=== PATIENT | male | born 1950 | race Caucasian/White ===

== ENCOUNTER → 2017-12-22 09:03 | Outpatient (CLI) | payer BC, SELFPAY ==
[2017-12-22 11:00] LABS: ALB/GLOB Ratio 1.1 RATIO (0.9-2.4); AST(SGOT) 23 U/L (15-37); Alanine Aminotransfer ALT/SGPT 32 U/L (16-61); Alkaline Phosphatase 95 U/L (45-117); Anion Gap 10 (5-15); BUN 22 mg/dL (7-18); BUN/Creat Ratio 21.6 RATIO (10-20); Chloride 104 mmol/L (98-107); Cholesterol 171 mg/dL (200); Creatinine, Serum 1.02 mg/dL (0.70-1.30); EST Glomerular Filtration Rate 77 mL/min (>60); Est Glom Filt Rate - Afr Amer 94 mL/min (>60); Globulin 3.7 g/dL (2.2-4.2); Glucose 95 mg/dL (74-106); High Density Lipoprotein 46 mg/dL; PSA,Total- Diagnostic 4.79 ng/mL (0.0-4.0); Potassium 3.3 mmol/L (3.5-5.1); Protein, Total 7.7 g/dL (6.4-8.2); Sodium Level 141 mmol/L (136-145); Triglycerides 145 mg/dL; Very Low Density Lipoprotein 29 mg/dL (5-40)
== END ==
PROVIDERS: Family Provider Family Medicine; PCP Family Medicine; Visit Provider Family Medicine
DX: I10 Essential (primary) hypertension (principal); R97.20 Elevated prostate specific antigen [PSA]
CPT/HCPCS: 36415; 80053; 80061; 84153

== ENCOUNTER → 2018-05-17 12:51 | Outpatient (CLI) | payer BC, SELFPAY ==
--- NOTE | 2018-05-17 12:55 | RAD_ITS ---
STUDY: X-RAY - LEFT KNEE REASON FOR EXAM: Male, 68 years old. Pain. Follow-up after surgery TECHNIQUE: 4 view(s) of the knee. COMPARISON: November 16, 2017 FINDINGS: Again noted is left knee replacement. No evidence of hardware failure or loosening. No acute fracture or dislocation. Small amount of joint effusion. RAD/Knee 4 or More Views IMPRESSION: Knee replacement without hardware failure or loosening. Small joint effusion Electronically Signed: Noman Jasmine DO at 13:34 EDT Tel , Service support ,
== END ==
PROVIDERS: Family Provider Family Medicine; PCP Family Medicine; Visit Provider Orthopaedic Surgery
DX: M17.12 Unilateral primary osteoarthritis, left knee (principal)
CPT/HCPCS: 73564

== ENCOUNTER → 2018-07-14 13:57 | Outpatient (CLI) | payer BC, SELFPAY ==
[2018-07-14 15:27] LABS: Anion Gap 7 (5-15); BUN 17 mg/dL (7-18); BUN/Creat Ratio 14.9 RATIO (10-20); Calcium,Total 9.3 mg/dL (8.5-10.1); Chloride 105 mmol/L (98-107); Creatinine, Serum 1.14 mg/dL (0.70-1.30); EST Glomerular Filtration Rate 68 mL/min (>60); Est Glom Filt Rate - Afr Amer 82 mL/min (>60); Glucose 109 mg/dL (74-106); PSA,Total- Diagnostic 4.26 ng/mL (0.0-4.0); Potassium 3.7 mmol/L (3.5-5.1); Sodium Level 140 mmol/L (136-145)
== END ==
PROVIDERS: Family Provider Family Medicine; PCP Family Medicine; Visit Provider Family Medicine
DX: I10 Essential (primary) hypertension (principal); E87.6 Hypokalemia; R97.20 Elevated prostate specific antigen [PSA]
CPT/HCPCS: 36415; 80048; 84153

== ENCOUNTER → 2019-01-08 12:58 | Outpatient (CLI) | payer BC, SELFPAY ==
[2019-01-08 13:42] LABS: Absolute Lymphocyte Count 2.34 X10^3/ul (0.83-4.51); Absolute Neutrophil Count 2.8 X10^3/uL (2.0-7.7); Basophil# 0.05 X10^3/uL; Basophil% 0.8 % (0-1); Eosinophil# 0.19 X10^3/uL; Eosinophils% 3.2 % (0-5); Hematocrit 44.9 % (40-54); Lymphocyte # 2.34 X10^3/ul (4.0); Lymphocyte % 39.4 % (19-41); Mean Corp Hgb Conc 33.4 g/gl (32-36); Mean Corpuscular Hgb 30.7 pg (27.0-32.0); Mean Corpuscular Volume 91.8 fL (80-94); Mean Platelet Vol. 9.5 fl (6.2-12.0); Monocyte# 0.59 X10^3/uL; Monocyte% 9.9 % (0-10); Neutrophil # 2.76 X10^3/uL (2.7-7.7); Neutrophil % 46.5 % (47-70); Platelet Count 255 K/mm3 (150-450); RBC Distribution Width CV 13.8 % (11.6-14.6); RBC Distribution Width SD 45.5 fl (35.1-43.9); Red Blood Count 4.89 M/mm3 (4.6-6.2); White Blood Count 5.9 K/mm3 (4.4-11.0)
[2019-01-08 13:43] LABS: POSITIVE COUNT NO; POSITIVE DIFFERENTIAL NO; POSITIVE MORPHOLOGY NO
[2019-01-08 14:14] LABS: ALB/GLOB Ratio 1.1 RATIO (0.9-2.4); AST(SGOT) 37 U/L (15-37); Alanine Aminotransfer ALT/SGPT 63 U/L (16-61); Alkaline Phosphatase 94 U/L (45-117); Anion Gap 7 (5-15); BUN 20 mg/dL (7-18); BUN/Creat Ratio 18.3 RATIO (10-20); Chloride 106 mmol/L (98-107); Cholesterol 173 mg/dL (200); Creatinine, Serum 1.09 mg/dL (0.70-1.30); EST Glomerular Filtration Rate 72 mL/min (>60); Est Glom Filt Rate - Afr Amer 87 mL/min (>60); Globulin 3.7 g/dL (2.2-4.2); Glucose 94 mg/dL (74-106); High Density Lipoprotein 38 mg/dL; PSA,Total- Diagnostic 4.26 ng/mL (0.0-4.0); Potassium 3.5 mmol/L (3.5-5.1); Protein, Total 7.7 g/dL (6.4-8.2); Sodium Level 141 mmol/L (136-145); Triglycerides 275 mg/dL; Very Low Density Lipoprotein 55 mg/dL (5-40)
== END ==
PROVIDERS: Family Provider Family Medicine; PCP Family Medicine; Referring Provider Family Medicine; Visit Provider Family Medicine
DX: I10 Essential (primary) hypertension (principal); R97.20 Elevated prostate specific antigen [PSA]; R73.01 Impaired fasting glucose; E87.6 Hypokalemia; N40.0 Benign prostatic hyperplasia without lower urinary tract symptoms
CPT/HCPCS: 36415; 80053; 80061; 84153; 85025

== ENCOUNTER → 2019-03-19 13:00 | Outpatient (CLI) | payer BC, SELFPAY ==
[2019-03-19 12:52] VITALS: BMI 30.5
--- NOTE | 2019-03-19 13:02 | RAD_ITS ---
STUDY: X-RAY - RIGHT KNEE REASON FOR EXAM: Male, 69 years old. Worsening pain TECHNIQUE: 4 view(s) of the knee. COMPARISON: None. FINDINGS: Normal visualized distal femur. Normal visualized proximal tibia and fibula. Normal proximal tibiofibular articulation. There is severe degenerative arthrosis of the medial femorotibial compartment with severe joint space narrowing. There is moderate degenerative arthrosis of the lateral femorotibial compartment with moderate joint space narrowing. There is moderate degenerative arthrosis of the patellofemoral articulation. The soft tissue structures are unremarkable. RAD/Knee 4 or More Views IMPRESSION: Degenerative arthrosis. Electronically Signed: Brock Farnsworth MD at 15:12 EDT , Service support ,
== END ==
PROVIDERS: Family Provider Family Medicine; PCP Family Medicine; Referring Provider Orthopaedic Surgery; Visit Provider Orthopaedic Surgery
DX: R52 Pain, unspecified (principal)
CPT/HCPCS: 73564

== ENCOUNTER 2019-06-26 09:29 | Observation (INO) | payer BC, SELFPAY ==
--- NOTE | 2019-05-28 02:35 | HP_ITS ---
Intake Vital Signs 05/28/19 Body Mass Index (BMI) 30.5 05/09/19 Body Mass Index (BMI) 30.5 Intake Visit Reasons: Right Knee Allergies ciprofloxacin Allergy (Verified 05/31/17 11:12) Vomiting Medications Multivitamins,Therapeutic [Multivitamin] 1 tab PO DAILY 10/18/14 [History Confirmed 05/28/19] Simvastatin [Zocor] 20 mg PO QHS 10/18/14 [History Confirmed 05/28/19] Triamterene 37.5MG/Hctz 25MG [Maxzide 37.5 mg-25 mg Tablet] 1 tab PO DAILY 10/18/14 [History Confirmed 05/28/19] Glucosam/Manoj-Msm1/C/Sundar/Bosw [Glucosamine-Chondroitin Caplet] 1 ea PO DAILY 12/08/15 [History Confirmed 05/28/19] Ubidecarenone/Vit E Acet [Co Q-10 100 mg Softgel] 1 ea PO DAILY 12/08/15 [History Confirmed 05/28/19] Dutasteride [Avodart] 0.5 mg PO DAILY 05/31/17 [History Confirmed 05/28/19] Docusate Sodium [Colace] 100 mg PO BID PRN PRN #10 cap 06/08/17 [Rx Confirmed 05/28/19] PFSH Surgical History (Updated 11/16/17 @ 09:06 by Pauly Serrato) Status post total left knee replacement (Acute) Social History (Updated 05/28/19 @ 14:35 by Micky Lomeli DO) Smoking Status: Never smoker HPI Right Knee: Chief Complaint: Right knee Surgical H&P: Yes Details: Parts of this documentation were recorded by a scribe, this documentation accurately reflects the service provided and the decisions made by , Micky Lomeli DO 05/28/19 0754. MULUGETA ECHAVARRIA is a 69 year old M here today to sign concent for right total knee. Patient denies any changes since last visit to the office. Patient has decided to also try the IOVERA. ROS Const Reports system reviewed and no additional complaints, except as docu Eyes Reports system reviewed and no additional complaints, except as docu ENT Reports system reviewed and no additional complaints, except as docu Card Reports system reviewed and no additional complaints, except as docu Resp Reports system reviewed and no additional complaints, except as docu GI Reports system reviewed and no additional complaints, except as docu Reports system reviewed and no additional complaints, except as docu Musc Reports system reviewed and no additional complaints, except as docu, Reports as per HPI Skin/Breast Reports system reviewed and no additional complaints, except as docu Neuro Yes system reviewed and no additional complaints, except as docu Psych Reports system reviewed and no additional complaints, except as docu Endo Reports system reviewed and no additional complaints, except as docu Damion/Lymph Reports system reviewed and no additional complaints, except as docu Aller/Immun Reports system reviewed and no additional complaints, except as docu Ortho Exam Right Knee Skin/Wound: No erythema, No ecchymosis, No swelling Homans Sign: No 1+: Effusion Knee ROM: Yes ROM-Extension -20 to 0 (full), Yes ROM-Flexion 0-140 (118) Examination: No Med jt line tenderness, No Lat jt line tenderness Stability: NML: Anterior Drawer, NML: Posterior Drawer, NML: Varus 30, 1+: Valgus 30 Apprehension with Lateral Translation: No Patella Grind: Yes KNEE: Has varus deformity. Assessment & Plan Problems 1. Primary osteoarthritis of right knee M17.11 Plan Patient aware that he has severe OA of the right knee. Reviewed risk benefits and alternatives of surgical versus nonsurgical intervention. Reviewed the pre- operative plans with the patient. Risks and benefits of the procedure were fully explained, including but not limited to infection, neurovascular injury, continued pain, arthritis, stiffness, need for further surgery, re-injury, DVT, PE, general risks of anesthesia, and loss of limb or life. The patient understands all the risks and does wish to proceed with written consent. He did have a history of requiring a Dynasplint on his left total knee arthroplasty. We did discuss Iovera risk benefits and patient wishes to proceed with Iovera tx which we will need to get pre-cert for this tx. Patient signs consent for surgery and Iovera tx for right knee this day. Patient placed on surgery schedule for 06/26/19. Follow up 06/11/19 for Iovera tx or sooner if pain, swelling, numbness or associated symptoms, or concerns develop. All questions answered. Patient in agreement of plan. Coding Level of Care Code Off vis,est,level 3 Diagnoses Primary osteoarthritis of right knee M17.11 05/28/19 1435 <Electronically signed by Micky lujan DO> Date _ Micky Lomeli DO
[2019-05-28 13:12] VITALS: BMI 30.5
[2019-06-21 13:34] LABS: Absolute Lymphocyte Count 2.99 X10^3/uL (0.83-4.51); Absolute Neutrophil Count 3.1 X10^3/uL (2.0-7.7); Basophil# 0.05 X10^3/uL; Basophil% 0.7 % (0-1); Eosinophil# 0.19 X10^3/uL; Eosinophils% 2.7 % (0-5); Hematocrit 42.1 % (40-54); Hemoglobin 14.5 g/dL (13.0-16.5); Lymphocyte # 2.99 X10^3/ul (4.0); Mean Corp Hgb Conc 34.4 g/dL (32-36); Mean Platelet Vol. 9.3 fl (6.2-12.0); Monocyte# 0.62 X10^3/uL; Monocyte% 8.9 % (0-10); NRBC Flagged by Analyzer 0 % (0-5); Neutrophil # 3.09 X10^3/uL (2.7-7.7); Neutrophil % 44.6 % (47-70); Platelet Count 227 K/mm3 (150-450); RBC Distribution Width CV 13.2 % (11.6-14.6); RBC Distribution Width SD 43.6 fl (35.1-43.9); Red Blood Count 4.68 M/mm3 (4.6-6.2)
[2019-06-21 14:03] LABS: ALB/GLOB Ratio 1.1 RATIO (0.9-2.4); AST(SGOT) 38 U/L (15-37); Alanine Aminotransfer ALT/SGPT 69 U/L (16-61); Albumin, Serum 3.9 g/dL (3.2-5.0); Alkaline Phosphatase 84 U/L (45-117); Anion Gap 6 (5-15); BUN 17 mg/dL (7-18); BUN/Creat Ratio 15.2 RATIO (10-20); Calcium,Total 8.9 mg/dL (8.5-10.1); Chloride 107 mmol/L (98-107); Cholesterol 162 mg/dL (200); Creatinine, Serum 1.12 mg/dL (0.70-1.30); EST Glomerular Filtration Rate 69 mL/min (>60); Est Glom Filt Rate - Afr Amer 84 mL/min (>60); Globulin 3.7 g/dL (2.2-4.2); Glucose 92 mg/dL (74-106); High Density Lipoprotein 37 mg/dL; PSA,Total- Diagnostic 3.15 ng/mL (0.0-4.0); Potassium 3.5 mmol/L (3.5-5.1); Protein, Total 7.6 g/dL (6.4-8.2); Sodium Level 141 mmol/L (136-145); Triglycerides 249 mg/dL; Very Low Density Lipoprotein 50 mg/dL (5-40)
[2019-06-26] VITALS (14 sets, daily range): BP systolic 99–127; BP diastolic 59–73; PULSE 66–80; RESP 14–18; TEMP 36.2–36.7; O2SAT 94–100; BMI 30.4
[2019-06-26] MEDS: Lactated Ringers 1,000 ML 100 ML IV (06:19)
[2019-06-26] MEDS: Magnesium Sulfate 4gm/100mL 4 GM/100 ML IV.SOLN. IV (06:19)
[2019-06-26] MEDS: Acetaminophen 500 MG Tablet 1000 MG PO ×3 (06:24→21:17)
[2019-06-26] MEDS: Celecoxib 200 MG Capsule 400 MG PO (06:24)
[2019-06-26] MEDS: Gabapentin 600 MG Tablet PO (06:24)
[2019-06-26] MEDS: Scopolamine 1mg/72hr Patch 1 PATCH TRANSDERM. (06:25)
[2019-06-26 06:26] LABS: Bedside Glucose 95 mg/dL (70-110)
[2019-06-26] MEDS: dexAMETHasone 10 MG/ML Vial IV (06:45)
[2019-06-26] MEDS: Cefazolin 2 GM in 0.9% Normal Saline 100 ML IV ×3 (07:15→22:29)
--- NOTE | 2019-06-26 07:15 | HP.PCM_ITS ---
History and Physical Date of Admission: 06/26/19 Intake Vital Signs 05/28/19 Body Mass Index (BMI) 30.5 05/09/19 Body Mass Index (BMI) 30.5 Intake Visit Reasons: Right Knee Allergies ciprofloxacin Allergy (Verified 05/31/17 11:12) Vomiting Medications Multivitamins,Therapeutic [Multivitamin] 1 tab PO DAILY 10/18/14 [History Confirmed 05/28/19] Simvastatin [Zocor] 20 mg PO QHS 10/18/14 [History Confirmed 05/28/19] Triamterene 37.5MG/Hctz 25MG [Maxzide 37.5 mg-25 mg Tablet] 1 tab PO DAILY 10/18/14 [History Confirmed 05/28/19] Glucosam/Manoj-Msm1/C/Sundar/Bosw [Glucosamine-Chondroitin Caplet] 1 ea PO DAILY 12/08/15 [History Confirmed 05/28/19] Ubidecarenone/Vit E Acet [Co Q-10 100 mg Softgel] 1 ea PO DAILY 12/08/15 [History Confirmed 05/28/19] Dutasteride [Avodart] 0.5 mg PO DAILY 05/31/17 [History Confirmed 05/28/19] Docusate Sodium [Colace] 100 mg PO BID PRN PRN #10 cap 06/08/17 [Rx Confirmed 05/28/19] PFSH Surgical History (Updated 11/16/17 @ 09:06 by Pauly Serrato) Status post total left knee replacement (Acute) Social History (Updated 05/28/19 @ 14:35 by Micky Lomeli DO) Smoking Status: Never smoker HPI Right Knee: Chief Complaint: Right knee Surgical H&P: Yes Details: Parts of this documentation were recorded by a scribe, this documentation accurately reflects the service provided and the decisions made by mo, Micky Lomeli DO 05/28/19 0754. MULUGETA ECHAVARRIA is a 69 year old M here today to sign concent for right total knee. Patient denies any changes since last visit to the office. Patient has decided to also try the IOVERA. ROS Const Reports system reviewed and no additional complaints, except as docu Eyes Reports system reviewed and no additional complaints, except as docu ENT Reports system reviewed and no additional complaints, except as docu Card Reports system reviewed and no additional complaints, except as docu Resp Reports system reviewed and no additional complaints, except as docu GI Reports system reviewed and no additional complaints, except as docu Reports system reviewed and no additional complaints, except as docu Musc Reports system reviewed and no additional complaints, except as docu, Reports as per HPI Skin/Breast Reports system reviewed and no additional complaints, except as docu Neuro Yes system reviewed and no additional complaints, except as docu Psych Reports system reviewed and no additional complaints, except as docu Endo Reports system reviewed and no additional complaints, except as docu Damion/Lymph Reports system reviewed and no additional complaints, except as docu Aller/Immun Reports system reviewed and no additional complaints, except as docu Ortho Exam Right Knee Skin/Wound: No erythema, No ecchymosis, No swelling Homans Sign: No 1+: Effusion Knee ROM: Yes ROM-Extension -20 to 0 (full), Yes ROM-Flexion 0-140 (118) Examination: No Med jt line tenderness, No Lat jt line tenderness Stability: NML: Anterior Drawer, NML: Posterior Drawer, NML: Varus 30, 1+: Valgus 30 Apprehension with Lateral Translation: No Patella Grind: Yes KNEE: Has varus deformity. Assessment & Plan Problems 1. Primary osteoarthritis of right knee M17.11 Plan Patient aware that he has severe OA of the right knee. Reviewed risk benefits and alternatives of surgical versus nonsurgical intervention. Reviewed the pre- operative plans with the patient. Risks and benefits of the procedure were fully explained, including but not limited to infection, neurovascular injury, continued pain, arthritis, stiffness, need for further surgery, re-injury, DVT, PE, general risks of anesthesia, and loss of limb or life. The patient understands all the risks and does wish to proceed with written consent. He did have a history of requiring a Dynasplint on his left total knee arthroplasty. We did discuss Iovera risk benefits and patient wishes to proceed with Iovera tx which we will need to get pre-cert for this tx. Patient signs consent for surgery and Iovera tx for right knee this day. Patient placed on surgery schedule for 06/26/19. Follow up 06/11/19 for Iovera tx or sooner if pain, swelling, numbness or associated symptoms, or concerns develop. All questions answered. Patient in agreement of plan. Coding Level of Care Code Off vis,est,level 3 Diagnoses Primary osteoarthritis of right knee M17.11 I have re-examined the patient. There are no clinical changes since date of exam
[2019-06-26] MEDS: Morphine 4 MG/ML Syringe (08:00)
[2019-06-26] MEDS: Bupivacaine 0.5% PF 10 ML VIAL (08:00)
[2019-06-26] MEDS: Epinephrine (1 mg/ml) 1 MG/ML VIAL (08:00)
[2019-06-26] MEDS: Lactated Ringers 1,000 ML 125 ML IV ×3 (09:01→22:32)
--- NOTE | 2019-06-26 09:27 | RAD_ITS ---
STUDY: X-RAY - RIGHT KNEE REASON FOR EXAM: Male, 69 years old. Postsurgical assessment TECHNIQUE: 2 view(s) of the knee. COMPARISON: None. FINDINGS: Patient with recent total knee joint replacement, with anatomical positioning of the knee prosthesis. Normal interface between the prosthesis and the underlying bone stock with no surgical complication observed. RAD/Knee 1 or 2 Views IMPRESSION: Unremarkable right knee replacement. No surgical complication observed. Electronically Signed: Dillon Gill MD at 13:08 EDT Tel [phone], Service support ,
--- NOTE | 2019-06-26 09:32 | PCM.OPRPT ---
Report of Operation Date of Procedure: 06/26/19 Description of Surgical Findings:: Preoperative diagnosis: Right knee DJD Postoperative diagnosis: [Same] Procedure: Right total knee arthroplasty Implant: Sade triathlon cemented right femoral component size 6, cemented tibial baseplate size 6, cemented [asymmetric] patella size 40, polyethylene X3 size [9] [CS] Anesthesia: Spinal with adductor canal block Tourniquet time: 88 minutes at 300 mmHg Complications: None Condition: Stable to PACU Estimated blood loss: [25] cc Indication for procedure: This is a 69-year-old male with long standing degenerative joint disease of the knee who has failed conservative treatment and wished to proceed with elective total knee arthroplasty. Risk benefits and alternatives were reviewed including; risk of bleeding, infection, nerve artery and tissue damage, continued pain, postoperative stiffness, venous thromboembolism, need for postoperative rehabilitation, mechanical feel to the knee, and expected postoperative course. Procedure: The patient was met in the preoperative holding area. The operative extremity was identified by both patient and physician and was marked. Patient was met by anesthesia. An adductor canal block was placed by anesthesia [postoperatively] the patient was brought back to the operating room on a wheeled cart and transferred to the operating table in the supine position. Anesthesia was started. A well-padded tourniquet was placed on the operative extremity. The patient was prepped and draped in the usual sterile fashion. A timeout was called to ensure the proper patient procedure and extremity were being contemplated. An Esmarch was used to exsanguinate the extremity. The tourniquet was inflated. A 10 blade scalpel was used to make a midline incision down through the skin and subcutaneous tissue. Skin retractors placed. Bovie was used to perform meticulous hemostasis. full-thickness flaps were elevated medial and lateral along the joint capsule. A deep blade scalpel was used to perform a medial parapatellar arthrotomy. The knee was brought to full extension. A Bovie was used to release the soft tissues off the most proximal aspect of the medial tibial plateau a three-quarter inch curved osteotome was also used for this process. The infrapatellar fat pad was excised. [The fat pad was excised partially anterior lateral portion the anterior medial was elevated from the femur]. the patella was everted. The knee was brought into flexion. An intramedullary drill was used followed by flexible intramedullary guide millie. The distal femoral cutting block was placed and set to remove 10 mm of bone and [5] degrees of valgus. The block was secured with pins and an oscillating saw was used to complete the distal femoral cut. During this, and all bony cuts retractors were used to protect the collateral ligaments. At this point a femoral sizer was used to measure the AP dimension of the femur. The sizer block was pinned parallel to the epicondylar axis for external rotation. The sizing block was removed and the appropriately sized 4-in-1 cutting block was placed over the previously made pinholes. It was checked with an marnie wing and the block was secured with pins. An oscillating saw was used to complete the anterior cut followed by the posterior cut followed by the posterior chamfer cut followed by the anterior chamfer cut. The block was removed as well as the fragments. A ronguer was used to remove excess osteophytes. The medial and lateral meniscus were excised as well as the ACL. At this point a PCL retractor was placed and an intramedullary drill was passed down the tibial canal followed by a solid intramedullary guide millie. The tibial cutting block was attached and set to remove 9 mm of bone from the high side. This was checked with an external alignment drop millie for slope and tilt. It was pinned into place. An oscillating saw was used to complete the tibial plateau cut and the block was removed. A large osteotome was used to elevate the fragment and a Marcelo and a Bovie were used to free the fragment from the surrounding soft tissue. A rongeur was once again used to remove osteophytes a lamina patriot missile air defense artillery was used to evaluate the posterior capsular structures. A three-quarter inch curved osteotome was used to remove posterior osteophytes. A spacer block was inserted in both extension and flexion to ensure adequate spacing. Trials were inserted full extension and flexion were achieved in varus and valgus stability throughout range of motion were seen, balancing techniques were performed. At this point the attention was turned towards the patella. A caliper was used to ensure sufficient bone stock to remove 10 mm of bone. A reamer was used to perform this task. Lug holes were made for the appropriate-sized patella. The patella trial was inserted and there was good patellar tracking with knee range of motion. The tibial baseplate was allowed to float into rotation and was marked on the tibial plateau with a Bovie. Lug holes were made in the femur and trials were removed. The tibial baseplate was then sized and its preparation was completed with a fin punch. The knee was thoroughly irrigated. A posterior capsular injection was performed [with our standard cocktail]. The knee was brought into flexion and irrigated again. The tibial baseplate was cemented. Excess cement was removed with curettes. The polyethylene component was inserted. The femoral component was cemented. The knee was brought into full extension and placed on a bump. The patellar component was cemented. At this point a Betadine rinse was placed and thoroughly irrigated after a few minutes. This was followed by an Iricept rinse which was allowed to sit for 1 minute and then thoroughly irrigated.At this point all gloves were changed. The knee was thoroughly irrigated the joint capsule was closed with [#1 Ethibond]. Tourniquet was let down followed by 0 Vicryl and 2-0 Vicryl in the subcutaneous tissues. followed by chino in the skin. Dressing was applied in the form of Xeroform 4 x 4 ABD web roll and an Vidal wrap from the foot to the groin. The patient tolerated the procedure well, all counts were correct patient was brought back to the PACU in stable condition.
--- NOTE | 2019-06-26 10:16 | SUR.PHASEI ---
BEGINNING TO HAVE GROSS MOTOR MOVEMENT OF LOWER EXTREMITIES TO COMMAND
[2019-06-26] MEDS: APIXABAN 2.5 MG TABLET PO ×2 (12:20→21:17)
[2019-06-26] MEDS: Senna/Docusate Sodium 1 Tablet 2 TABLET PO ×2 (12:20→21:16)
[2019-06-26] MEDS: Atorvastatin Calcium 10 MG Tablet PO (21:16)
[2019-06-27 03:00] VITALS: BP 116/65; PULSE 75; RESP 16; TEMP 36.6; O2SAT 100
[2019-06-27] MEDS: Acetaminophen 500 MG Tablet 1000 MG PO ×2 (05:17→14:32)
[2019-06-27 06:17] LABS: Hematocrit 35.4 % (40-54); Mean Corp Hgb Conc 33.9 g/dL (32-36); Mean Corpuscular Hgb 30.8 pg (27.0-32.0); Mean Platelet Vol. 9.8 fl (6.2-12.0); Platelet Count 198 K/mm3 (150-450); RBC Distribution Width CV 13.3 % (11.6-14.6); RBC Distribution Width SD 43.8 fl (35.1-43.9); Red Blood Count 3.89 M/mm3 (4.6-6.2); White Blood Count 17.2 K/mm3 (4.4-11.0)
[2019-06-27 06:42] LABS: Anion Gap 9 (5-15); BUN 17 mg/dL (7-18); BUN/Creat Ratio 15.6 RATIO (10-20); Calcium,Total 8.5 mg/dL (8.5-10.1); Chloride 107 mmol/L (98-107); Creatinine, Serum 1.09 mg/dL (0.70-1.30); EST Glomerular Filtration Rate 71 mL/min (>60); Est Glom Filt Rate - Afr Amer 86 mL/min (>60); Estimated Creatinine Clearance 66.97 ml/min; Glucose 123 mg/dL (74-106); Potassium 3.5 mmol/L (3.5-5.1); Sodium Level 141 mmol/L (136-145)
[2019-06-27 09:52] VITALS: BP 109/58; PULSE 62; RESP 18; TEMP 36.6; O2SAT 99
[2019-06-27] MEDS: Triamterene 37.5MG/Hctz 25MG Capsule 1 CAP PO (09:57)
[2019-06-27] MEDS: APIXABAN 2.5 MG TABLET PO (09:57)
[2019-06-27] MEDS: Senna/Docusate Sodium 1 Tablet 2 TABLET PO (09:57)
[2019-06-27] MEDS: Finasteride 5 MG Tablet PO (09:58)
--- NOTE | 2019-06-27 11:21 | CASEMGMT ---
RN CM Assessment Presentation: RTKR Intro role of CM and purpose of RN CM assessment to patient and his . Demographics, PCP and Pharmacy verified. Pt states he has been very independent @ home. Plans to return home and if therapy is needed outpt- prefers [facility]. PCP: Dr. David Hurley Specialists: Dr. Lomeli Preferred Pharmacy: [facility] Insurance: [employer] Prescription Benefit: yes LNOK: Verena Joel, Living Arrangements: Lives in one story home, 3 steps into home. Pt very independent prior to surgery. Transportation: Drives, can drive post surgery. DME: wheeled walker, straight cane, comfort height commode. HHC: none Patient DC goals: Home with outpt therapy DC PLAN: Home, pt prefers [facility] for Outpt therapy. Azul PABONN RN ACM
--- NOTE | 2019-06-27 11:30 | CASEMGMT ---
ALINA MOE updated that patient would like outpatient therapy at discharge at [facility]. ALINA MOE called and requested appt for outpatient therapy. [facility] next available appt in for Tuesday. ALINA MOE requested [facility] to see if patient could be seen sooner. [facility] to return call if cancellation occurs.
--- NOTE | 2019-06-27 12:29 | PCM.DC.ORTHO ---
Discharge Diet: No Restrictions Discharge Activity: Return to Normal Activity, Use Walker Weight Bearing Status: Weight bearing as tolerated Call your doctor if you observe: Fever of 101 or Higher, Shortness of breath, Chest pain Additional Instructions: Ice and elevate next week while not ambulating. Encourage ambulation weightbearing as tolerated. Encourage FULL knee extension and flexion 1 time EVERY time you get up and down and MULTIPLE times per day. Begin showering postop day #3. Remove the dressing prior to shower gently wash with warm water and antibacterial soap then pat dry place ABD pad and SHANNON hose over top. This is to be done daily. If not showering daily must clean incision and change dressing daily. Do not allow animals near incision keep clean. Follow anticoagulation recommendations. Call Dr. Lomeli with any concerns. Allergies/Adverse Reactions: Allergies ciprofloxacin Allergy (Verified 06/20/19 15:26) Vomiting PROJECTILE VOMITTING, UNABLE TO EAT FOR 3 DAYS Medications to take at Discharge Multivitamins,Therapeutic [Multivitamin] 1 tab PO DAILY 10/18/14 Simvastatin [Zocor] 20 mg PO QHS 10/18/14 Triamterene 37.5MG/Hctz 25MG [Maxzide 37.5 mg-25 mg Tablet] 1 tab PO DAILY 10/18/14 Glucosam/Manoj-Msm1/C/Sundar/Bosw [Glucosamine-Chondroitin Caplet] 1 ea PO DAILY 12/08/15 Ubidecarenone/Vit E Acet [Co Q-10 100 mg Softgel] 1 ea PO DAILY 12/08/15 Dutasteride [Avodart] 0.5 mg PO DAILY 05/31/17 Acetaminophen [Tylenol] 1,000 mg PO Q6H PRN #100 tab 06/27/19 Apixaban [Eliquis] 2.5 mg PO BID #28 tab 06/27/19 Oxycodone [Oxyir] 5 - 10 mg PO Q4H PRN PRN #60 tablet 06/27/19 The following prescriptions were given: Apixaban [Eliquis] 2.5 mg PO BID #28 tab Transmission Status: Pending to [facility] Oxycodone [Oxyir] 5 - 10 mg PO Q4H PRN PRN #60 tablet PRN Reason: Mod-Severe Pain (-08/16) Transmission Status: Sent to [facility] Acetaminophen [Tylenol] 1,000 mg PO Q6H PRN #100 tab Transmission Status: Pending to [facility] Orders to be completed after discharge: Basic Metabolic Profile (BMP) Time Frame: 06/20/19, Facility: [facility], Location: Laboratory CBC-Complete Blood Cnt No Diff Time Frame: 06/20/19, Facility: [facility], Location: Laboratory Primary Care Physician: David Hurley DO [Primary Care Provider] - Test Results: Test results from this visit will be discussed in further detail at your follow-up appointment, if applicable. Please Follow Up With: Micky Lomeli DO - 2 weeks
[2019-06-27 12:30] VITALS: BP 119/71; PULSE 73; RESP 16; TEMP 37; O2SAT 100
--- NOTE | 2019-06-27 12:30 | PCM.DC.SUM ---
Discharge Date and Diagnosis Date of Admission: 06/26/19 Date of Discharge: 06/27/19 - Secondary Discharge Diagnosis Chronic Problems (Last Reviewed 11/16/17 @ 09:05 by Pauly Serrato) HTN (hypertension) (Chronic) BPH (benign prostatic hyperplasia) (Chronic) Dyslipidemia (Chronic) Hospital Course and Treatment Summary of Care Provided: The patient is a 69 year old M who has long history of degenerative joint disease to the knee who has failed conservative treatment and wished to undergo elective total knee arthroplasty. Patient underwent the aformentioned procedure on the admission date without any intraoperative complications. Patient did receive pre-and postoperative antibiotics which were discontinued within 23 hours postoperatively. Patient did receive spinal anesthesia as well as an adductor canal block postoperatively. pain was controlled with IV and transition to p.o. pain medication he will be discharged home with oxycodone and will continue Tylenol as well. Patient had minimal intraoperative blood loss and tranexamic acid was administered there was no need for postoperative blood transfusion her vital signs remained stable. Patient was started on both mechanical and chemical DVT per prophylaxis postoperatively in the form of SCDs SHANNON hose and Eliquis 2.5 mg twice daily for which she will continue for 2 additional weeks post hospital discharge. Vidal removed post op day number one and thigh high shannon hose placed over top of the mepilix silver dressing. This should be removed 72 hrs post operatively and showering begun daily at that time with warm water and antibacterial soap. not to submerge for 3 weeks. l change dressing daily at that point. Patient will follow-up in the office in 2 weeks. No intrahospital complications. - Physical Exam General: Alert, Oriented x3, Cooperative, No apparent distress Extremities: - - Compartment soft neurovascular intact dressing clean dry and intact Vital Signs Temp Pulse Resp BP Pulse Ox 97.9 F 62 18 109/58 L 99 06/27/19 09:52 06/27/19 09:52 06/27/19 09:52 06/27/19 09:52 06/27/19 09:52 Oxygen Flow Rate (L/min) 6 Oxygen Delivery Method Room Air Weight: 212 lb 4.882 oz Body Mass Index (BMI) 30.4 Finger Stick Blood Glucose 63 Intake and Output for Last 24 Hours 06/25/19 06/26/19 06/27/19 23:59 23:59 23:59 Intake Total 3937.91 / 3937.91 886.84 / 886.84 Output Total 250 / 250 Balance 3937.91 / 3937.91 636.84 / 636.84 Laboratory Tests Past 24 Hrs 06/27/19 06/27/19 05:48 05:48 WBC 17.2 H RBC 3.89 L Hgb 12.0 L Hct 35.4 L MCV 91.0 MCH 30.8 MCHC 33.9 RDW Std Deviation 43.8 RDW Coeff of Yessica 13.3 Plt Count 198 MPV 9.8 Sodium 141 Potassium 3.5 Chloride 107 Carbon Dioxide 25.0 Anion Gap 9 BUN 17 Creatinine 1.09 Estim Creat Clear Calc 66.97 Est GFR (MDRD) Af Amer 86 Est GFR (MDRD) Non-Af 71 BUN/Creatinine Ratio 15.6 Glucose 123 H Calcium 8.5 Discharge Diet: No Restrictions Discharge Activity: Return to Normal Activity, Use Walker Weight Bearing Status: Weight bearing as tolerated Call your doctor if you observe: Fever of 101 or Higher, Shortness of breath, Chest pain Home Medications: Medications to take at Discharge Multivitamins,Therapeutic [Multivitamin] 1 tab PO DAILY 10/18/14 Simvastatin [Zocor] 20 mg PO QHS 10/18/14 Triamterene 37.5MG/Hctz 25MG [Maxzide 37.5 mg-25 mg Tablet] 1 tab PO DAILY 10/18/14 Glucosam/Manoj-Msm1/C/Sundar/Bosw [Glucosamine-Chondroitin Caplet] 1 ea PO DAILY 12/08/15 Ubidecarenone/Vit E Acet [Co Q-10 100 mg Softgel] 1 ea PO DAILY 12/08/15 Dutasteride [Avodart] 0.5 mg PO DAILY 05/31/17 Acetaminophen [Tylenol] 1,000 mg PO Q6H PRN #100 tab 06/27/19 Apixaban [Eliquis] 2.5 mg PO BID #28 tab 06/27/19 Oxycodone [Oxyir] 5 - 10 mg PO Q4H PRN PRN #60 tablet 06/27/19 Following Prescrptions Were Given to Patient: Apixaban [Eliquis] 2.5 mg PO BID #28 tab Transmission Status: Pending to [facility] Oxycodone [Oxyir] 5 - 10 mg PO Q4H PRN PRN #60 tablet PRN Reason: Mod-Severe Pain (4-08/16) Transmission Status: Sent to [facility] Acetaminophen [Tylenol] 1,000 mg PO Q6H PRN #100 tab Transmission Status: Pending to [facility] Other Amb Orders: Basic Metabolic Profile (BMP) Time Frame: 06/20/19, Facility: [facility], Location: Laboratory CBC-Complete Blood Cnt No Diff Time Frame: 06/20/19, Facility: [facility], Location: Laboratory Primary Care Physician: David Hurley DO [Primary Care Provider] - Please Follow Up With: Micky Lomeli DO - 2 weeks Additional Instructions: Ice and elevate next week while not ambulating. Encourage ambulation weightbearing as tolerated. Encourage FULL knee extension and flexion 1 time EVERY time you get up and down and MULTIPLE times per day. Begin showering postop day #3. Remove the dressing prior to shower gently wash with warm water and antibacterial soap then pat dry place ABD pad and SHANNON hose over top. This is to be done daily. If not showering daily must clean incision and change dressing daily. Do not allow animals near incision keep clean. Follow anticoagulation recommendations. Call Dr. Lomeli with any concerns. Medical Necessity - Tobacco Use Smoking Status: Never smoker Tobacco Use: Non-smoker Meaningful Use Info Meaningful Use Diagnoses (Choose all that apply): None applicable
--- NOTE | 2019-06-27 13:15 | CASEMGMT ---
ALINA MOE received call from [facility], appointment available Tuesday06/29/19 2691. ALINA MOE updated patient and family regarding appointment for Tuesday. ALINA MOE called Dr. Lomeli's office to update regarding outpatient therapy and requested order be faxed to [facility].
== END 2019-06-27 14:40 | disposition home or self-care (01) ==
LOC: MS3 11:44 → SDC 11:48
PROVIDERS: Admitting Provider Orthopaedic Surgery; Family Provider Family Medicine; PCP Family Medicine; Referring Provider Orthopaedic Surgery; Visit Provider Orthopaedic Surgery
PROC: (CPT 27447; principal; 2019-06-26 06:50)
DX: M17.11 Unilateral primary osteoarthritis, right knee (principal); Z79.899 Other long term (current) drug therapy; I10 Essential (primary) hypertension; G47.30 Sleep apnea, unspecified; E78.00 Pure hypercholesterolemia, unspecified; N40.0 Benign prostatic hyperplasia without lower urinary tract symptoms
CPT/HCPCS: 27447; 36415; 73560; 80048; 80053; 80061; 82962; 84153; 85025; 85027; 87081; 96361; 96365; 96366; 96367; 97110; 97162; 97165; 97530; 99218; C1776; J7120; G0378

== ENCOUNTER 2019-08-15 06:22 | Day surgery (SDC) | payer BC, SELFPAY ==
[2019-08-08 15:35] VITALS: BMI 30.4
[2019-08-15 06:48] VITALS: BP 137/89; PULSE 77; RESP 16; TEMP 36.6; O2SAT 97; BMI 31.2
[2019-08-15] MEDS: Lactated Ringers 1,000 ML 100 ML IV (06:57)
[2019-08-15] MEDS: Cefazolin 2 GM in 0.9% Normal Saline 100 ML IV (08:03)
[2019-08-15] MEDS: MethylPREDNISolone Acetate 80 MG/ML Vial (08:04)
[2019-08-15] MEDS: Bupiv/Epi 0.5% Mpf 30 ML Vial (08:04)
--- NOTE | 2019-08-15 08:11 | DCINST_ITS ---
Discharge Diet: No Restrictions Discharge Activity: Return to Normal Activity Additional Instructions: Encourage full knee range of motion fully straighten and fully flex 1 time every time to get up and down and multiple times per day start physical therapy immediately take pain medication to control pain adequately call with any concerns Allergies/Adverse Reactions: Allergies ciprofloxacin Allergy (Verified 08/15/19 06:45) Vomiting PROJECTILE VOMITTING, UNABLE TO EAT FOR 3 DAYS Medications to take at Discharge Multivitamins,Therapeutic [Multivitamin] 1 tab PO DAILY 10/18/14 Simvastatin [Zocor] 20 mg PO QHS 10/18/14 Triamterene 37.5MG/Hctz 25MG [Maxzide 37.5 mg-25 mg Tablet] 1 tab PO DAILY 10/18/14 Glucosam/Manoj-Msm1/C/Sundar/Bosw [Glucosamine-Chondroitin Caplet] 1 ea PO DAILY 12/08/15 Ubidecarenone/Vit E Acet [Co Q-10 100 mg Softgel] 1 ea PO DAILY 12/08/15 Dutasteride [Avodart] 0.5 mg PO DAILY 05/31/17 Primary Care Physician: David Hurley DO [Primary Care Provider] - Test Results: Test results from this visit will be discussed in further detail at your follow- up appointment, if applicable. Please Follow Up With: Micky Lomeli DO - 4 weeks
--- NOTE | 2019-08-15 08:11 | PCM.HP.BLA ---
History and Physical Date of Admission: 08/15/19 Intake Vital Signs 08/08/19 Body Mass Index (BMI) 30.4 Intake Visit Reasons: Right Knee Chief Complaint: right knee Is patient in pain?: No Allergies ciprofloxacin Allergy (Verified 06/20/19 15:26) Vomiting Medications Multivitamins,Therapeutic [Multivitamin] 1 tab PO DAILY 10/18/14 [History Confirmed 08/08/19] Simvastatin [Zocor] 20 mg PO QHS 10/18/14 [History Confirmed 08/08/19] Triamterene 37.5MG/Hctz 25MG [Maxzide 37.5 mg-25 mg Tablet] 1 tab PO DAILY 10/18/14 [History Confirmed 08/08/19] Glucosam/Manoj-Msm1/C/Sundar/Bosw [Glucosamine-Chondroitin Caplet] 1 ea PO DAILY 12/08/15 [History Confirmed 08/08/19] Ubidecarenone/Vit E Acet [Co Q-10 100 mg Softgel] 1 ea PO DAILY 12/08/15 [History Confirmed 08/08/19] Dutasteride [Avodart] 0.5 mg PO DAILY 05/31/17 [History Confirmed 08/08/19] Acetaminophen [Tylenol] 1,000 mg PO Q6H PRN #100 tab 06/27/19 [Rx Confirmed 08/08/19] Apixaban [Eliquis] 2.5 mg PO BID #28 tab 06/27/19 [Rx Confirmed 08/08/19] Oxycodone [Oxyir] 5 - 10 mg PO Q4H PRN PRN #60 tab 06/27/19 [Rx Confirmed 08/08/19] PFSH Surgical History (Updated 11/16/17 @ 09:06 by Pauly Serrato) Status post total left knee replacement (Acute) Social History (Updated 08/08/19 @ 16:04 by Micky Lomeli DO) Smoking Status: Never smoker HPI Right Knee: Details: Parts of this documentation were recorded by a scribe, this documentation accurately reflects the service provided and the decisions made by , Micky Lomeli DO 08/08/19 0756. MULUGETA ECHAVARRIA is a 69 year old M here today for f/u right TKA 06/26/19. Patient is doing well, still progressing in PT with lack of full rom. He has pain only with forced flexion. Denies any pain with ambulation. Patient is compliant with an HEP as well. Patient has mild swelling and well healing scar. Patient is able to complete all ADLs. Ortho Exam Right Knee Skin/Wound: No erythema, No ecchymosis, No swelling Knee ROM: No ROM-Extension -20 to 0 (10), No ROM-Flexion 0-140 (105) Assessment & Plan Problems 1. Stiffness of right knee M25.661 2. Orthopedic aftercare Z47.89 Plan Patient understands there is more rom needed and we can do a manipulation under anesthesia with injection into the knee to gain the last 15 degrees. Reviewed the pre-operative plans with the patient. Risks and benefits of the procedure were fully explained, including but not limited to infection, neurovascular injury, continued pain, arthritis, stiffness, need for further surgery, re-injury, DVT, PE, general risks of anesthesia, and loss of limb or life. The patient understands all the risks and does wish to proceed with written consent. Follow up in [] or sooner if pain, swelling, numbness or associated symptoms, or concerns develop. All questions answered. Patient in agreement of plan. Coding Level of Care Code Global Post Op Diagnoses Stiffness of right knee M25.661 Orthopedic aftercare Z47.89 I have re-examined the patient. There are no clinical changes since date of exam
--- NOTE | 2019-08-15 08:12 | PCM.OPRPT ---
Report of Operation Description of Surgical Findings:: Preoperative diagnosis: Arthrofibrosis right knee Postoperative diagnosis: Same Procedure: Manipulation under anesthesia with intra-articular steroid injection Anesthesia: General EBL: None Complications: None Condition: Able to PACU Indication for procedure: This is a 69-year-old male who underwent total knee arthroplasty approximately 6 weeks ago who is failed to gain her range of motion wish to undergo an elective manipulation under anesthesia to increase range of motion. risk benefits and alternatives were reviewed including risk of bleeding infection nerve, artery, bone, tissue damage, blood clot need for further surgery and continued pain. Procedure: Patient was met in the preoperative holding area once again the operative extremity was identified by both patient and physician and was marked. Patient was brought back to the operating room anesthesia was started. A timeout was called into the proper patient procedure and extremity were being contemplated. The operative range of motion was 5 extension and achieving 95 degrees flexion. After patient was adequately anesthetized extension manipulation was performed followed by patellar mobilization followed by gradual flexion scar tissue was palpated being released with no concerning signs for tendon rupture or fracture. Postoperative range of motion was much improved with near full extension and 125 degrees of flexion.
[2019-08-15 08:15] VITALS: BP 121/77; BP 137/89; PULSE 79; RESP 16; TEMP 36.3; O2SAT 97
[2019-08-15 08:30] VITALS: BP 115/78; BP 137/89; PULSE 76; RESP 16; O2SAT 97
[2019-08-15 08:45] VITALS: BP 118/79; BP 137/89; PULSE 70; RESP 16; TEMP 36.6; O2SAT 99
[2019-08-15 09:16] VITALS: BP 137/89
== END 2019-08-15 09:20 | disposition home or self-care (01) ==
LOC: SDC 06:22 → AC 06:24
PROVIDERS: Family Provider Family Medicine; PCP Family Medicine; Referring Provider Orthopaedic Surgery; Visit Provider Orthopaedic Surgery
PROC: (CPT 27570; principal; 2019-08-15 07:55)
DX: M24.661 Ankylosis, right knee (principal); E78.00 Pure hypercholesterolemia, unspecified; I10 Essential (primary) hypertension; G47.30 Sleep apnea, unspecified; Z96.651 Presence of right artificial knee joint; Z96.652 Presence of left artificial knee joint; Z79.02 Long term (current) use of antithrombotics/antiplatelets; Z79.891 Long term (current) use of opiate analgesic; Z79.899 Other long term (current) drug therapy
CPT/HCPCS: 01380; 27570; J7120; J2405

== ENCOUNTER 2019-09-18 16:30 | Outpatient (RCR) | payer BC, SELFPAY ==
[2019-06-26 06:12] VITALS: BMI 30.4
--- NOTE | 2019-06-29 12:31 | HP.PTEVAL ---
Patient's Visit Information MULUGETA ECHAVARRIA is a 69 year old M referred to Physical Therapy by Micky Lomeli DO with a diagnosis of R TKA s/p 06-26-19. Date of Evaluation: 06/29/19 Physical Therapist: DEE DEE Hawkins - Visit Plan Frequency: 3x /Week Duration: 6 Weeks Plan: Pt had a L TKR that needed a manipulation....push ROM early within tolerace. 3X/ week for 6 weeks for R knee AROM, PROM, AAROM, gait training, functional training, balance training with HEP. - Subjective Findings: R TKR was done on Tuesday06-26-19. He got out of the hospital he thinks yesterday. He has a hard time recalling when he got out of the hospital... he reports that he is not good with dates. His L TKR was done about 2 years ago. He reports that that he is confused as to why his Quad muscles were cramping up on him and burning sensation when sitting down. He reports that he did not have the muscle pain in the thigh and the brusing. He is using a front wheeled walker... he is trying to get off the walker for a few steps. He has stairs to the basement and can hold onto the garage floor on the ways down but has not tried them since surgery. - Pain R knee pain Pain Intensity (Out of 10): 0 Comment: He has a burning senstaion in the knee when standing up and tight quad m - Objective Gait: walks with a front wheeled rolling walker with shorter stride and decrease heel strike on the R. Sit to stand: needs UE support to be able to get out of a chair. R knee AROM: -4 degrees from full extension to 95 degrees R knee flexion. SLR: needs AA to perform exercise.... 2 X 10 performed today AA. S/L hip abd 2 X 10 I. QS: 5 sec hold 3 X 10 with heel prop. Incision looks good... no signs or symptoms of infection. Dr Lomeli came in during PT session to check for drainage as called into Dr hess. Nu-step L1 X 5 min to increase ROM and push swelling out of the way. - Goals Goal 1:: I HEP Goal Time Frame: 4-6 Weeks Goal 2:: Increase R knee AROM 0-120 degrees flexion Goal Time Frame: 4-6 Weeks Goal 3:: Be able to walk with normal gait pattern without AD or antalgic gait Goal Time Frame: 4-6 Weeks Goal 4:: Be able to get up out of a chair without the use of his UE's Goal Time Frame: 4-6 Weeks - Rehabilitation Potential Rehabilitation Potential: Good - Anticipated Interventions Patient/Client Instruction: Educate patient on: Condition, Plan of Care For the Purpose of:: To decrease pain, To decrease swelling/inflammation, To increase ROM, To improve nutrient delivery to tissue, To increase oxygenation perfusion, To improve muscle performance and motor function, To improve ability to perform ADL's, To increase tolerance to activity/condition/position, To improve performance and independence with ADL's, To decrease level of supervision to perform tasks, To improve ability of physical actions for home/community/work/leisure, To improve gait and locomotor functions, To improve health of tissue, To decrease soft tissue restriction, To increase flexibility/ROM, To improve endurance, To improve balance, To improve safety with gait Therapeutic Exercise to Include: Strength training, Endurance training, Balance training, Flexibilty training, Gait and locomotor training, Passive ROM, Active ROM For the Purpose of:: To decrease pain, To increase ROM, To improve nutrient delivery to tissue, To increase oxygenation perfusion, To improve muscle performance and motor function, To improve ability to perform ADL's, To increase tolerance to activity/condition/position, To improve performance and independence with ADL's, To decrease level of supervision to perform tasks, To improve ability of physical actions for home/community/work/leisure, To improve gait and locomotor functions, To improve health of tissue, To decrease soft tissue restriction, To increase flexibility/ROM, To improve balance, To improve safety with gait Functional Training to Include: Gait training For the Purpose of:: To improve gait and locomotor functions, To improve safety with gait Thank you for the opportunity to evaluate your patient. For Medicare and Medicare HMO plans, please review the plan of care and approve it. It will need to be FAXED BACK to us at [phone] for Medicare purposes. For Medicare only, by signing this I certify the plan of care. Please let me know if there are questions or concerns regarding this plan of care. Physician Signature: Date:
--- NOTE | 2019-07-31 16:38 | HP.PTREVAL ---
Micky Lomeli, DO, It has been my pleasure to treat MULUGETA ECHAVARRIA over the last 13 visits for R TKA s/p 06-26-19. Please see the progress note below for an update on the physical therapy plan of care! Subjective: Pt reports that he is walking faster and he can feel his leg getting stronger. He goes back to the Dr next week. Objective/Function: -3 degrees to 110 degrees R knee flexion Plan Plan: continue POC Goals Goal 1:: I HEP Goal Time Frame: 4-6 Weeks Goal Progress: Goal Met Goal 2:: Increase R knee AROM 0-120 degrees flexion Goal Time Frame: 4-6 Weeks Goal Progress: Progressing Goal 3:: Be able to walk with normal gait pattern without AD or antalgic gait Goal Time Frame: 4-6 Weeks Goal 4:: Be able to get up out of a chair without the use of his UE's Goal Time Frame: 4-6 Weeks Goal Progress: Goal Met Anticipated Interventions Patient/Client Instruction: Educate patient on: Condition, Plan of Care For the Purpose of:: To decrease pain, To decrease swelling/inflammation, To increase ROM, To improve nutrient delivery to tissue, To increase oxygenation perfusion, To improve muscle performance and motor function, To improve ability to perform ADL's, To increase tolerance to activity/condition/position, To improve performance and independence with ADL's, To decrease level of supervision to perform tasks, To improve ability of physical actions for home/community/work/leisure, To improve gait and locomotor functions, To improve health of tissue, To decrease soft tissue restriction, To increase flexibility/ROM, To improve endurance, To improve balance, To improve safety with gait Therapeutic Exercise to Include: Strength training, Endurance training, Balance training, Flexibilty training, Gait and locomotor training, Passive ROM, Active ROM For the Purpose of:: To decrease pain, To increase ROM, To improve nutrient delivery to tissue, To increase oxygenation perfusion, To improve muscle performance and motor function, To improve ability to perform ADL's, To increase tolerance to activity/condition/position, To improve performance and independence with ADL's, To decrease level of supervision to perform tasks, To improve ability of physical actions for home/community/work/leisure, To improve gait and locomotor functions, To improve health of tissue, To decrease soft tissue restriction, To increase flexibility/ROM, To improve balance, To improve safety with gait Functional Training to Include: Gait training For the Purpose of:: To improve gait and locomotor functions, To improve safety with gait Please do not hesitate to contact me at [phone] by phone or if you have questions or concerns regarding this new plan of care! Sincerely, Maria A White, MPT
--- NOTE | 2019-10-29 16:27 | HP.PTDCNRP_ITS ---
HP - Discharge Summary (1) - Patient Information MULUGETA ECHAVARRIA was seen in my office for initial evaluation on 06/29/19. The following Plan of Care was established for this patient: Initial Frequency: 3x /Week Initial Duration: 6 Weeks - Anticipated Interventions Patient/Client Instruction: Educate patient on: Condition, Plan of Care For the Purpose of:: To decrease pain, To decrease swelling/inflammation, To inc rease ROM, To improve nutrient delivery to tissue, To increase oxygenation perfusion, To improve muscle performance and motor function, To improve ability to perform ADL's, To increase tolerance to activity/condition/position, To improve performance and independence with ADL's, To decrease level of supervision to perform tasks, To improve ability of physical actions for home/community/work/leisure, To improve gait and locomotor functions, To improve health of tissue, To decrease soft tissue restriction, To increase flexibility/ROM, To improve endurance, To improve balance, To improve safety wi th gait Therapeutic Exercise to Include: Strength training, Endurance training, Balance training, Flexibilty training, Gait and locomotor training, Passive ROM, Active ROM For the Purpose of:: To decrease pain, To increase ROM, To improve nutrient delivery to tissue, To increase oxygenation perfusion, To improve muscle performance and motor function, To improve ability to perform ADL's, To increase tolerance to activity/condition/position, To improve performance and independence with ADL's, To decrease level of supervision to perform tasks, To improve ability of physical actions for home/community/work/leisure, To improve gait and locomotor functions, To improve health of tissue, To decrease soft tissue restriction, To increase flexibility/ROM, To improve balance, To improve safety with gait Functional Training to Include: Gait training For the Purpose of:: To improve gait and locomotor functions, To improve safety with gait This patient was last seen in our office 09/18/19. Pertinent comments regarding their Physical therapy will appear below: DC PT At this point I will be discontinuing this patient from physical therapy. I would be happy to see this patient again in the future if found appropriate by the physician. Thank you! Maria A White, MPT
== END 2019-09-18 19:00 | disposition home or self-care (01) ==
LOC: PT 16:30
PROVIDERS: Family Provider Family Medicine; PCP Family Medicine; Referring Provider Orthopaedic Surgery; Visit Provider Orthopaedic Surgery
DX: Z98.890 Other specified postprocedural states (principal)
CPT/HCPCS: 97110; 97140; 97161

== ENCOUNTER → 2020-05-27 13:57 | Outpatient (CLI) | payer BC, SELFPAY ==
[2019-10-08 08:03] VITALS: BMI 31.2
[2020-05-27 15:08] LABS: Absolute Lymphocyte Count 2.93 X10^3/uL (0.83-4.51); Absolute Neutrophil Count 4.5 X10^3/uL (2.0-7.7); Basophil# 0.07 X10^3/uL; Basophil% 0.8 % (0-1); Eosinophil# 0.17 X10^3/uL; Hematocrit 44.3 % (40-54); Hemoglobin 15.3 g/dL (13.0-16.5); Lymphocyte # 2.93 X10^3/ul (4.0); Lymphocyte % 34.3 % (19-41); Mean Corp Hgb Conc 34.5 g/dL (32-36); Mean Corpuscular Hgb 31.4 pg (27.0-32.0); Mean Platelet Vol. 10.1 fl (6.2-12.0); Monocyte% 9.4 % (0-10); NRBC Flagged by Analyzer 0 % (0-5); Neutrophil # 4.54 X10^3/uL (2.7-7.7); Neutrophil % 53.1 % (47-70); Platelet Count 247 K/mm3 (150-450); RBC Distribution Width CV 13.7 % (11.6-14.6); RBC Distribution Width SD 45.7 fl (35.1-43.9); Red Blood Count 4.87 M/mm3 (4.6-6.2); White Blood Count 8.5 K/mm3 (4.4-11.0)
[2020-05-27 15:26] LABS: ALB/GLOB Ratio 1.1 RATIO (0.9-2.4); AST(SGOT) 97 U/L (15-37); Alanine Aminotransfer ALT/SGPT 166 U/L (16-61); Albumin, Serum 4.1 g/dL (3.2-5.0); Alkaline Phosphatase 91 U/L (45-117); Anion Gap 6 (5-15); BUN 18 mg/dL (7-18); Calcium,Total 9.1 mg/dL (8.5-10.1); Chloride 106 mmol/L (98-107); Cholesterol 166 mg/dL (200); EST Glomerular Filtration Rate 64 mL/min (>60); Est Glom Filt Rate - Afr Amer 77 mL/min (>60); Globulin 3.8 g/dL (2.2-4.2); Glucose 89 mg/dL (74-106); High Density Lipoprotein 40 mg/dL; PSA,Total - Annual Screen 2.25 ng/mL (0.00-4.00); Potassium 3.2 mmol/L (3.5-5.1); Protein, Total 7.9 g/dL (6.4-8.2); Sodium Level 139 mmol/L (136-145); Triglycerides 133 mg/dL; Very Low Density Lipoprotein 27 mg/dL (5-40)
== END ==
PROVIDERS: PCP Family Medicine; Referring Provider Family Medicine; Visit Provider Family Medicine
DX: I10 Essential (primary) hypertension (principal); E78.5 Hyperlipidemia, unspecified; R97.20 Elevated prostate specific antigen [PSA]
CPT/HCPCS: 36415; 80053; 80061; 84153; 85025; G0103

== ENCOUNTER → 2021-06-23 09:29 | Outpatient (CLI) | payer MEDICARE, SELFPAY ==
[2019-10-08 08:03] VITALS: BMI 31.2
[2021-06-23 10:17] LABS: Absolute Lymphocyte Count 2.69 X10^3/uL (0.83-4.51); Absolute Neutrophil Count 3.3 X10^3/uL (2.0-7.7); Basophil# 0.06 X10^3/uL; Basophil% 0.9 % (0-1); Eosinophil# 0.29 X10^3/uL; Eosinophils% 4.1 % (0-5); Hematocrit 45.5 % (40-54); Hemoglobin 15.8 g/dL (13.0-16.5); Lymphocyte # 2.69 X10^3/ul (0.83-4.51); Lymphocyte % 38.5 % (19-41); Mean Corp Hgb Conc 34.7 g/dL (32-36); Mean Corpuscular Hgb 31.3 pg (27.0-32.0); Mean Corpuscular Volume 90.3 fL (80-94); Mean Platelet Vol. 9.6 fl (6.2-12.0); Monocyte# 0.62 X10^3/uL; Monocyte% 8.9 % (0-10); NRBC Flagged by Analyzer 0 % (0-5); Neutrophil # 3.31 X10^3/uL (2.7-7.7); Neutrophil % 47.3 % (47-70); Platelet Count 241 K/mm3 (150-450); RBC Distribution Width CV 13.6 % (11.6-14.6); RBC Distribution Width SD 44.5 fl (35.1-43.9); Red Blood Count 5.04 M/mm3 (4.6-6.2)
[2021-06-23 10:34] LABS: ALB/GLOB Ratio 0.9 RATIO (0.9-2.4); AST(SGOT) 40 U/L (15-37); Alanine Aminotransfer ALT/SGPT 65 U/L (16-61); Albumin, Serum 3.9 g/dL (3.2-5.0); Alkaline Phosphatase 81 U/L (45-117); Anion Gap 6 (5-15); BUN 17 mg/dL (7-18); BUN/Creat Ratio 14.5 RATIO (10-20); Calcium,Total 9.5 mg/dL (8.5-10.1); Chloride 106 mmol/L (98-107); Cholesterol 194 mg/dL (200); Creatinine, Serum 1.17 mg/dL (0.70-1.30); EST Glomerular Filtration Rate 65 mL/min (>60); Est Glom Filt Rate - Afr Amer 79 mL/min (>60); Globulin 4.3 g/dL (2.2-4.2); Glucose 104 mg/dL (74-106); High Density Lipoprotein 39 mg/dL; PSA,Total - Annual Screen 1.97 ng/mL (0.00-4.00); Potassium 3.4 mmol/L (3.5-5.1); Protein, Total 8.2 g/dL (6.4-8.2); Sodium Level 139 mmol/L (136-145); Triglycerides 197 mg/dL; Very Low Density Lipoprotein 39 mg/dL (5-40)
== END ==
PROVIDERS: PCP Family Medicine; Referring Provider Family Medicine; Visit Provider Family Medicine
DX: I10 Essential (primary) hypertension (principal); Z12.5 Encounter for screening for malignant neoplasm of prostate; E78.5 Hyperlipidemia, unspecified
CPT/HCPCS: 36415; 80053; 80061; 84153; 85025; G0103

== ENCOUNTER → 2022-06-30 | Outpatient (CLI) | payer MEDICARE, SELFPAY ==
[2022-06-30 11:01] LABS: Absolute Neutrophil Count 3.4 X10^3/uL (2.0-7.7); Basophil# 0.07 X10^3/uL; Basophil% 0.9 % (0-1); Eosinophil# 0.31 X10^3/uL; Eosinophils% 4.1 % (0-5); Hematocrit 45.4 % (40-54); Hemoglobin 15.9 g/dL (13.0-16.5); Lymphocyte % 39.7 % (19-41); Mean Corpuscular Hgb 31.6 pg (27.0-32.0); Mean Corpuscular Volume 90.3 fL (80-94); Mean Platelet Vol. 9.6 fl (6.2-12.0); Monocyte# 0.72 X10^3/uL; Monocyte% 9.5 % (0-10); NRBC Flagged by Analyzer 0 % (0-5); Neutrophil # 3.43 X10^3/uL (2.7-7.7); Neutrophil % 45.5 % (47-70); Platelet Count 255 K/mm3 (150-450); RBC Distribution Width CV 13.7 % (11.6-14.6); RBC Distribution Width SD 45.8 fl (35.1-43.9); Red Blood Count 5.03 M/mm3 (4.6-6.2); White Blood Count 7.6 K/mm3 (4.4-11.0)
[2022-06-30 12:06] LABS: AST(SGOT) 34 U/L (15-37); Alanine Aminotransfer ALT/SGPT 51 U/L (16-61); Alkaline Phosphatase 70 U/L (45-117); Anion Gap 8 (5-15); BUN 20 mg/dL (7-18); BUN/Creat Ratio 16.3 RATIO (10-20); Calcium,Total 9.8 mg/dL (8.5-10.1); Chloride 106 mmol/L (98-107); Cholesterol 192 mg/dL (200); Creatinine, Serum 1.23 mg/dL (0.70-1.30); EST Glomerular Filtration Rate 62 mL/min (>60); Est Glom Filt Rate - Afr Amer 75 mL/min (>60); Globulin 3.9 g/dL (2.2-4.2); Glucose 116 mg/dL (74-106); High Density Lipoprotein 38 mg/dL; PSA,Total - Annual Screen 2.22 ng/mL (0.00-4.00); Potassium 3.1 mmol/L (3.5-5.1); Protein, Total 7.9 g/dL (6.4-8.2); Sodium Level 140 mmol/L (136-145); Triglycerides 250 mg/dL; Very Low Density Lipoprotein 50 mg/dL (5-40)
== END | disposition home or self-care (01) ==
LOC: LAB 10:08
PROVIDERS: PCP Family Medicine; Visit Provider Family Medicine
DX: I10 Essential (primary) hypertension (principal); E78.5 Hyperlipidemia, unspecified; K75.81 Nonalcoholic steatohepatitis (NASH); Z12.5 Encounter for screening for malignant neoplasm of prostate
CPT/HCPCS: 36415; 80053; 80061; 84153; 85025; G0103

== ENCOUNTER → 2022-12-28 | Outpatient (CLI) | payer MEDICARE, SELFPAY ==
--- NOTE | 2022-12-28 10:51 | ECHOD_ITS ---
Reason For Study: CSA/HELEN Procedure This was a 2D Doppler, Color Flow transthoracic echocardiogram. Exam performed in department. Left Ventricle Normal LV size. Apical false tendon noted. Left ventricular systolic function is normal. The estimated ejection fraction is 60 %. No evidence for diastolic dysfunction. No regional wall motion abnormalities noted. Right Ventricle Normal RV size. Normal systolic function. Atria Normal left atrium. Normal right atrium. No doppler evidence for ASD. Mitral Valve There is no mitral annular calcification. Normal mitral valve. Trivial mitral valve insufficiency. Tricuspid Valve Normal tricuspid valve. Trivial tricuspid valve insufficiency. Right ventricular systolic pressure estimated to be 24 mmHg. Aortic Valve Trisinus/trileaflet aortic valve. Normal aortic valve. Pulmonic Valve The pulmonic valve is not well visualized. Mild (1+) pulmonic valve insufficiency. Great Vessels Normal sized aortic root. Pericardium/Pleural No pericardial effusion. MMode/2D Measurements & Calculations LVIDd: 4.4 cm IVSd: 1.1 cm Ao root diam: 3.4 cm LVIDs: 3.0 cm LVPWd: 1.0 cm RVDd: 2.9 cm FS: 32.2 % LAV(MOD-bp): 23.8 ml LVAd ap4: 30.6 cm2 SV(MOD-sp4): 47.2 ml LAV(MOD-bp) Indexed: 10.9 ml/m2 LVLd ap4: 9.3 cm LAV(MOD-sp2): 24.5 ml EDV(MOD-sp4): 81.7 ml LAV(MOD-sp4): 22.5 ml EDV(sp4-el): 85.3 ml LVAs ap4: 17.0 cm2 LVLs ap4: 7.6 cm ESV(MOD-sp4): 34.6 ml ESV(sp4-el): 32.2 ml EF(MOD-sp4): 57.7 % EF(sp4-el): 62.2 % SV(sp4-el): 53.1 ml LA A4 area: 11.2 cm2 LA dimension(2D): 3.5 cm RA A4 area: 10.6 cm2 Time Measurements MV dec time: 0.22 sec Doppler Measurements & Calculations MV E max rivas: 46.1 cm/sec Lat Peak E' Rivas: 7.8 cm/sec Med Peak E' Rivas: 7.6 cm/sec MV A max rivas: 86.2 cm/sec E/E' lat: 5.9 E/E' med: 6.1 MV E/A: 0.53 Ao V2 max: 101.6 cm/sec LV V1 max: 73.2 cm/sec PA V2 max: 75.8 cm/sec Ao max P.1 mmHg LV V1 max P.1 mmHg PI end-d rivas: 96.0 cm/sec TR max rivas: 229.2 cm/sec TR max P.0 mmHg ECHO/Echo Complete Interpretation Summary Left ventricular systolic function is normal. The estimated ejection fraction is 60 %. Apical false tendon noted. Trivial mitral valve insufficiency. Trivial tricuspid valve insufficiency. Mild (1+) pulmonic valve insufficiency. Right ventricular systolic pressure estimated to be 24 mmHg. No evidence for diastolic dysfunction. Ordering Physician: Jadon Bledsoe V Referring Physician: ANA OLVERA Performed By: Darlyn Johnson RDCS
== END | disposition home or self-care (01) ==
PROVIDERS: PCP Family Medicine; Referring Provider Internal Medicine Pulmonary Disease; Visit Provider Internal Medicine Pulmonary Disease
DX: G47.31 Primary central sleep apnea (principal); G47.33 Obstructive sleep apnea (adult) (pediatric)
CPT/HCPCS: 93306

== ENCOUNTER → 2023-08-05 | Outpatient (CLI) | payer MEDICARE, SELFPAY ==
[2023-08-05 12:21] LABS: Absolute Lymphocyte Count 2.88 X10^3/uL (0.83-4.51); Absolute Neutrophil Count 3.1 X10^3/uL (2.0-7.7); Basophil# 0.07 X10^3/uL; Eosinophil# 0.28 X10^3/uL; Hematocrit 44.2 % (40-54); Hemoglobin 14.9 g/dL (13.0-16.5); Lymphocyte # 2.88 X10^3/ul (0.83-4.51); Lymphocyte % 41.4 % (19-41); Mean Corp Hgb Conc 33.7 g/dL (32-36); Mean Corpuscular Hgb 31.1 pg (27.0-32.0); Mean Corpuscular Volume 92.3 fL (80-94); Mean Platelet Vol. 9.5 fl (6.2-12.0); Monocyte# 0.65 X10^3/uL; Monocyte% 9.4 % (0-10); NRBC Flagged by Analyzer 0 % (0-5); Neutrophil # 3.05 X10^3/uL (2.7-7.7); Neutrophil % 43.9 % (47-70); Platelet Count 234 K/mm3 (150-450); RBC Distribution Width CV 13.3 % (11.6-14.6); RBC Distribution Width SD 45.3 fl (35.1-43.9); Red Blood Count 4.79 M/mm3 (4.6-6.2)
[2023-08-05 12:44] LABS: AST(SGOT) 31 U/L (15-37); Alanine Aminotransfer ALT/SGPT 57 U/L (16-61); Albumin, Serum 3.7 g/dL (3.2-5.0); Alkaline Phosphatase 62 U/L (45-117); Anion Gap 5 (5-15); BUN 16 mg/dL (7-18); BUN/Creat Ratio 13.8 RATIO (10-20); Calcium,Total 9.2 mg/dL (8.5-10.1); Chloride 107 mmol/L (98-107); Cholesterol 162 mg/dL (200); Creatinine, Serum 1.16 mg/dL (0.70-1.30); EST Glomerular Filtration Rate 66 mL/min (>60); Est Glom Filt Rate - Afr Amer 80 mL/min (>60); Globulin 3.6 g/dL (2.2-4.2); Glucose 108 mg/dL (74-106); High Density Lipoprotein 36 mg/dL; PSA,Total - Annual Screen 1.69 ng/mL (0.00-4.00); Potassium 3.3 mmol/L (3.5-5.1); Protein, Total 7.3 g/dL (6.4-8.2); Sodium Level 139 mmol/L (136-145); Triglycerides 220 mg/dL; Very Low Density Lipoprotein 44 mg/dL (5-40)
== END | disposition home or self-care (01) ==
LOC: MTLAB 09:31
PROVIDERS: PCP Family Medicine; Referring Provider Family Medicine; Visit Provider Family Medicine
DX: I10 Essential (primary) hypertension (principal); E78.5 Hyperlipidemia, unspecified; Z12.5 Encounter for screening for malignant neoplasm of prostate
CPT/HCPCS: 36415; 80053; 80061; 84153; 85025; G0103

== ENCOUNTER → 2024-01-19 | Outpatient (CLI) | payer MEDICARE, SELFPAY ==
[2024-01-19 12:35] LABS: Hematocrit 45.2 % (40-54); Hemoglobin 15.5 g/dL (13.0-16.5); Mean Corp Hgb Conc 34.3 g/dL (32-36); Mean Corpuscular Hgb 31.8 pg (27.0-32.0); Mean Corpuscular Volume 92.6 fL (80-94); Mean Platelet Vol. 9.6 fl (6.2-12.0); Platelet Count 262 K/mm3 (150-450); RBC Distribution Width CV 13.5 % (11.6-14.6); RBC Distribution Width SD 46.2 fl (35.1-43.9); Red Blood Count 4.88 M/mm3 (4.6-6.2)
--- OUTSIDE RECORDS SUMMARY | 2024-01-19 12:44 | XMS RPT_ITS | CCD ---
Author Name Unknown Address [address] [place] [address] Organization [facility] Care Team Providers Care Pharmacist Per Diem Name Role Phone Eugene Minnie N Unavailable Marcus Seay Unavailable Knight, Minnie N Unavailable Knight, Minnie N Unavailable Knight, Minnie N Unavailable Knight, Minnie N Unavailable Knight, Minnie N Unavailable Knight, Minnie N Unavailable Knight, Minnie N Unavailable Knight, Minnie N Unavailable Shanna Horne [facility] Primary [facility] Primary Care Unavailable CHAVA HOWARD Attending Unavailable Medications Completed/Discontinued Medications Medication Drug Class(es) Dates Sig (Normalized) Sig (Original) cholecalciferol 0.025 mg oral capsule (1 source) Vitamin D Cholecalciferol, Vitamin D3, (VITAMIN D) 25 mcg (1,000 unit) cap Take 1,000 Units by mouth once daily. 0 Active Problems Active Problems Problem Classification Problem Date Documented Date Episodic/Chronic Delirium, dementia, and amnestic and other cognitive disorders (1 source) Dementia; Translations: [Unspecified dementia without behavioral disturbance] Chronic Disorders of lipid metabolism (4 sources) Hyperlipidemia; Translations: [Hyperlipidemia, unspecified] Onset: 12-12-2015 11-02-2021 Chronic Essential hypertension (4 sources) Hypertensive disorder; Translations: [Essential (primary) hypertension] Onset: 12-12-2015 11-02-2021 Chronic Hyperplasia of prostate (18 sources) Benign prostatic hyperplasia; Translations: [Benign prostatic hyperplasia without lower urinary tract symptoms] Onset: 12-12-2015 11-17-2021 Chronic Osteoarthritis (15 sources) Bilateral primary osteoarthritis of knee; Translations: [Bilateral primary osteoarthritis of knee] Onset: 04-02-2016 04-18-2016 Chronic Other endocrine disorders (4 sources) Hypoglycemia; Translations: [Hypoglycemia, unspecified] Onset: 12-12-2015 11-02-2021 Chronic Other hereditary and degenerative nervous system conditions (1 source) Essential tremor; Translations: [Essential tremor] Chronic Other screening for suspected conditions (not mental disorders or infectious disease) (1 source) Patient encounter status; Translations: [Encounter for screening for other disorder] 07-26-2023 Episodic Parkinson`s disease (1 source) Parkinsonism; Translations: [Parkinson's disease] Chronic Residual codes; unclassified (4 sources) Obstructive sleep apnea syndrome; Translations: [Obstructive sleep apnea (adult) (pediatric)] Onset: 12-14-2015 12-14-2015 Chronic Unclassified (8 sources) Aftercare ; Translations: [Encounter for other orthopedic aftercare] Onset: 06-20-2017 06-20-2017 Unclassified (4 sources) SUMMARY Onset: 12-12-2015 11-02-2021 Past or Other Problems Problem Classification Problem Date Documented Da te Episodic/Chronic Calculus of urinary tract (4 sources) History of calculus of kidney; Translations: [Personal history of urinary calculi] Onset: 12-22-2015 12-22-2015 Episodic Other and unspecified benign neoplasm (4 sources) Neoplasm of pancreas; 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] Onset: 01-12-2016 01-12-2016 Episodic Other non-traumatic joint disorders (20 sources) Knee pain; Translations: [Pain in left knee] Onset: 04-02-2016 06-15-2017 Episodic Results Test Name Value Interpretation Reference Range Facil ity Vital Signs Date Time Vital Sign Value Performing Clinician Facility 07-26-2023 13:00-0400 Body height 175.9 cm Chava Howard PA-C Work Phone: [facility] 07-26-2023 13:00-0400 Body temperature 97.2 [degF] Chava Howard PA-C Work Phone: [facility] 07-26-2023 13:00-0400 Body weight 100.25 kg Chava Howard PA-C Work Phone: [facility] 07-26-2023 13:00-0400 Diastolic blood pressure 90 mm[Hg] Chava Howard PA-C Work Phone: [facility] 07-26-2023 13:00-0400 Heart rate 96 /min Chava Howard PA-C Work Phone: [facility] 07-26-2023 13:00-0400 SaO2% (BldA) [Mass fraction] 97 % Chava Howard PA-C Work Phone: [facility] 07-26-2023 13:00-0400 Systolic blood pressure 130 mm[Hg] Chava Howard PA-C Work Phone: [facility] 03-30-2022 16:04-0400 Diastolic blood pressure 89 mm[Hg] Viki Bryant MD Work Phone: [facility] 03-30-2022 16:04-0400 Systolic blood pressure 127 mm[Hg] Viki Bryant MD Work Phone: [facility] 03-30-2022 14:56-0400 Body height 177.2 cm Viki Bryant MD Work Phone: [facility] 03-30-2022 14:56-0400 Body weight 97.52 kg Viki Bryant MD Work Phone: [facility] 03-30-2022 14:56-0400 Heart rate 77 /min Viki Bryant MD Work Phone: [facility] 03-30-2022 14:56-0400 SaO2% (BldA) [Mass fraction] 99 % Viki Bryant MD Work Phone: [facility] 06-08-2017 06:16-0400 Body surface area Derived from formula 70.78 mL/min Minnie Knight [facility] Work Phone: 04-02-2016 08:13-0400 Weight 94.[address] [facility] Work Phone: Encounters Encounter Date Encounter Type Care Provider Facility Start: 07-26-2023 End: 07-26-2023 ambulatory [facility] Facility:[facility] Start: 07-26-2023 End: 07-26-2023 Patient encounter procedure Chava Howard PA-C Work Phone: Urology Procedures Date Procedure Procedure Detail Performing Clinician Start: 07-26-2023 Urnls dip stick/tabl et rgnt auto w/o microscopy Chava TERAN-Jeni Work Phone: Start: 03-25-2022 Adult depression scr eening assessment Viki Bryant MD Work Phone: Start: 08-16-2016 End: 08-16-2016 Arthrocentesis aspir&/inj major jt/bursa w/o us Marcus Seay Work Phone: Start: 08-16-2016 End: 08-16-2016 Drain/inject, joint/bursa Marcus Seay Work Phone: Start: 04-02-2016 End: 04-18-2016 Arthrocentesis aspir&/inj major jt/bursa w/o us Marcus Seay Work Phone: Start: 04-02-2016 End: 06-08-2017 Radiologic exam knee complete 4/more views Marcus Seya Work Phone: Start: 04-02-2016 End: 04-18-2016 Drain/inject, joint/bursa Marcus Seay Work Phone: Start: 04-02-2016 End: 06-08-2017 X-ray exam, knee, 4 or more Marcus Carlos dd Work Phone: Start: 04-28-2015 Colonoscopy Viki wetzel MD Work Phone: Plan of Treatment Date Care Activity Detail Author Start: 04-28-2025 Colonoscopy COLONOSCOPY [facility] Start: 04-28-2025 COLORECTAL CANCER SCREENING COLORECTAL CANCER SCREENING [facility] Start: 07-08-2023 Influenza vaccination Influenza Vaccine (#1) [facility] Start: 03-25-2023 Adult depression screening assessment DEPRESSION SCREENING [facility] Start: 11-28-2022 Covid-19 Vaccine (6 - Pfizer series) Covid-19 Vaccine (6 - Pfizer series) [facility] Start: 11-07-2022 Advance Directive Discussion Advance Directive Discussion [facility] Start: 11-07-2022 Depression Assessment Depression Assessment [facility] Start: 07-08-2022 Influenza vaccination [facility] Start: 05-11-2022 COVID-19 VACCINE (5 - Booster for Pfizer series) COVID-19 VACCINE (5 - Booster for Pfizer series) [facility] Start: 11-07-2021 ADVANCE DIRECTIVE DISCUSSION ADVANCE DIRECTIVE DISCUSSION [facility] Start: 11-07-2021 DEPRESSION ASSESSMENT DEPRESSION ASSESSMENT [facility] Start: 07-20-2021 DIABETES SCREEN DIABETES SCREEN [facility] Start: 07-20-2021 Diabetes Screening Diabetes Screening [facility] Start: 08-29-2017 End: 08-29-2017 Appointment Appointment [facility] Work Phone: Start: 07-18-2017 End: 07-18-2017 Radiologic exam knee complete 4/more views X-Ray, Knee [facility] Work Phone: Start: 07-18-2017 End: 07-18-2017 Appointment Appointment [facility] Work Phone: Start: 07-18-2017 End: 07-18-2017 X-ray exam, knee, 4 or more X-Ray, Knee [facility] Work Phone: Start: 06-20-2017 End: 06-20-2017 Appointment Appointment [facility] Work Phone: Start: 06-15-2017 End: 06-15-2017 Physical Therapy General Physical Therapy [facility], [address] [place] [address], [id number] [facility] Work Phone: Start: 06-15-2017 End: 06-15-2017 Physical Therapy General Physical Therapy [facility], [address] [place] [address], [id number] [facility] Work Phone: Start: 06-07-2017 End: 06-07-2017 Appointment Appointment [facility] Work Phone: Start: 05-16-2017 End: 05-16-2017 Appointment Appointment [facility] Work Phone: Start: 01-11-2017 Pneumococcal Vaccine: 65+ (2 - PCV) Pneumococcal Vaccine: 65+ (2 - PCV) [facility] Start: 01-11-2017 PNEUMOCOCCAL: 65+ (2 - PCV) PNEUMOCOCCAL: 65+ (2 - PCV) [facility] Start: 04-02-2016 End: 06-08-2017 Radiologic exam knee complete 4/more views X-Ray, Knee [facility] Work Phone: Start: 04-02-2016 End: 06-08-2017 X-ray exam, knee, 4 or more X-Ray, Knee [facility] Work Phone: Start: 2001 SHINGRIX VACCINE (1 of 2) SHINGRIX VACCINE (1 of 2) [facility] Start: 01-09-1996 COLOGUARD (FIT-DNA) COLOGUARD (FIT-DNA) [facility] Start: 01-09-[address] COLONOGRAPHY [facility] Start: 01-09-1996 FECAL OCCULT BLOOD FECAL OCCULT BLOOD [facility] Start: 01-09-1996 SIGMOIDOSCOPY SIGMOIDOSCOPY [facility] Start: 1986 Lipid 1996 panel - Serum or Plasma Lipid Screening [facility] Start: 1986 LIPID SCREEN LIPID SCREEN [facility] Start: 1970 Urine microalbumin profile [facility] Start: 1969 ANNUAL PCP TEAM CHRONIC DISEASE VISIT ANNUAL PCP TEAM CHRONIC DISEASE VISIT [facility] Start: 1969 BP CONTROLLED (<130/80) BP CONTROLLED (<130/80) [facility] Start: 1969 HEPATITIS C SCREENING HEPATITIS C SCREENING [facility] POST VOID RESIDUAL POST VOID RES IDUAL Procedures Routine Benign prostatic hyperplasia without lower urinary tract symptoms Screening for genitourinary condition Ordered: 07/26/2023 [facility] Work Phone: Immunizations Immunization Date Immunization Notes Care Provider Ernestine elias 07-29-2022 influenza virus vacc ine, unspecified formulation Chava Howard PA-C Work Phone: [facility] 01-12-2016 pneumococcal polysaccharide vaccine, 23 valent Viki Bryant MD Work Phone: [facility] 08-07-2015 influenza, seasonal, injectable Viki Bryant MD Work Phone: [facility] Work Phone: Payers Date Payer Category Payer Medicare [employer] MEDICARE A ETNA MEDICARE PPO [id number] 2021-Present [phone] [address] [place] [address] PPO [id number] 2021 Medicare [employer] MEDICARE A ETNA MEDICARE PPO [id number] 2021-Present [phone] [address] [place] [address] PPO [id number] 2021 Medicare [id number] Social History Date Type Detail Facility Start: 03-29-2022 Tobacco smoking stat us NHIS Never smoked tobacco [facility] Start: 03-30-2022 End: 07-26-2023 Alcohol intake Ex-drinker (finding) [facility] Start: 1950 Sex Assigned At Male [facility] Start: 03-20-2022 End: 03-30-2022 Exposure to SARS-CoV-2 (event) Not sure [facility] Start: 03-29-2022 Tobacco use and exposure Smoke less tobacco non-user [facility] Start: 03-25-2022 End: 07-26-2023 History of Social function [facility] Start: 03-25-2022 End: 07-26-2023 Tobacco use panel [facility] Adult Depression Screening Assessment 0 [facility] Start: 06-29-2021 Gender identity Identifies as male gender (finding) [facility] Start: 06-29-2021 Sexual orientation Heterosexual (fin lynne) [facility] Progress note 07-26-2023 Note Date & Type Note Facility 07-26-2023 Note HNO ID: [id number] Author: CHAVA HOWARD PA-C Service: ? Author Type: Physician Metallographer Type: Progress Notes Filed: 12/13/2023 19:24 Note Text: [facility] EST[facility]LISHED PATIENT CLINIC NOTE Some elements copied from his previous note, which have been updated where appropriate, and all reflect current medical decision making from date of this visit. NAME: Álvaro Echavarria CHIEF COMPLAINT: Follow-up for BPH and elevated PSA HISTORY OF PRESENT ILLNESS: Álvaro Echavarria is a 73 year old Male BPH and Elevated PSA presenting with stable symptoms some urgency but not bothersome NTF 0 His PSA not done yet this year he takes Avodart daily He will have PSA results sent to us Other symptoms: ED - no LABS: Hematocrit (%) Date Value 01/17/2016 36.7 01/16/2016 36.3 01/15/2016 36.5 01/14/2016 39.2 2022 - Pending to be faxed by lab to us Jun 2022 - PSA - 2.22 2020 - 1.97 MEDICATIONS: Cholecalciferol, Vitamin D3, (VITAMIN D) 25 mcg (1,000 unit) cap Take 1,000 Units by mouth once daily. potassium chloride 20 mEq TbER Take by mouth once daily. Coenzyme G58-[id number] E 100-5 mg-unit cap Take by mouth once daily. TRIAMTERENE/HYDROCHLOROTHIAZID (MAXZIDE-25MG ORAL) Take by mouth once daily. 37.5-25 MG simvastatin (ZOCOR) 20 mg tablet Take 20 mg by mouth daily at bedtime. MEN'S MULTI-VITAMIN ORAL Take by mouth once daily. dutasteride (AVODART) 0.5 mg capsule Take 1 capsule by mouth once daily. Vitamin D3-Menaquinone 7 1000-90 unit-mcg ODT Take by mouth once daily. (Patient not taking: Reported on 07/26/2023) PAST MEDICAL HISTORY: PAST MEDICAL HISTORY Diagnosis Date Benign insulinoma BPH (benign prostatic hypertrophy) with urinary retention Essential tremor Hyperlipemia Hypertension Obstructive sleep apnea Snoring REVIEW OF SYSTEMS: GENERAL: No fever, chills, weight loss, or fatigue. All other systems reviewed and are negative PHYSICAL EXAMINATION: Blood pressure 130/90, pulse 96, temperature 36.2 ?C (97.2 ?F), temperature source Temporal, height 175.9 cm (5' 9.25 ), weight 100.2 kg (221 lb), SpO2 97%. GENERAL: WNL nutrition, no deformities, healthy appearing PROBLEM LIST REVIEW: Yes LABS: Results for orders placed or performed in visit on 07/26/23 UA DIP, URINE (POC) Result Value Ref Range GLUCOSE UA (POCT) Negative Negative mg/dL BILIRUBIN UA (POCT) Negative Negative KETONE UA (POCT) Negative Negative mg/dL SPECIFIC GRAVITY UA (POCT) 1.020 1.005 - 1.030 HEMOGLOBIN/BLOOD UA (POCT) Negative Negative PH UA (POCT) 7.5 4.5 - 8.0 PROTEIN UA (POCT) Negative Negative mg/dL UROBILINOGEN UA (POCT) 0.2 Normal E.U./dL NITRITE UA (POCT) Negative Negative LEUKOCYTES UA (POCT) Negative Negative COLOR UA (POCT) Yellow CLARITY UA (POCT) Clear PROCEDURES: PVR 88 ml IMAGING: IMPRESSION/PLAN: 72 year old male with BPH LUTS with mild elevated PVR 1. Benign prostatic hyperplasia with urinary retention - ICD9: 600.01, 788.20, ICD10: N40.1, R33.8 (primary diagnosis) 2. Screening for genitourinary condition - ICD9: V81.6, ICD10: Z13.89 > waiting on PSA for PCP > 1 year Appt mandeep/ UDAY Sawant MT, PA-C with PSA prior UDAY Burgos MT, SHLOMOC [facility] Progress note 07-26-2023 Note Date & Type Note Facility 07-26-2023 Note HNO ID: [id number] Author: Anjali Jo LPN Service: ? Author Type: ? Type: Progress Notes Filed: 07/26/2023 2:30 PM Note Text: Verified name and date of . CC Post Void Residual HPI: Álvaro Echavarria is a 73 year old male. The patient is here now for an appointment with UDAY Burgos, GEORGIANA MAYA. Procedure: Explained procedure to patient and verbalizes understanding. Performed a PVR. Patient urinated and instructed to empty bladder as much as possible just prior to having PVR done using bladder ultrasound scanner. Results of scan: 88 mL The patient tolerated the procedure well. Plan: Appointment with Chava. [facility] History of Present illness Narrative 07-26-2023 Chava Howard PA-C - 07/26/2023 1:34 PM EDTClaAnjali robledo LPN - 07/26/2023 1:00 PM EDT Note Date & Type Note Facility 07-26-2023 History of Presen t illness Narrative Images from the original note were not included. [facility] EST[facility] PATIENT [facility]IN[facility] NOTE Some elements copied from his previous note, which have been updated where appropriate, and all reflect current medical decision making from date of this visit. NAME: Álavro Echavarria CHIEF COMPLAINT: Follow-up for BPH and elevated PSA HISTORY OF PRESENT ILLNESS: Álvaro Echavarria is a 73 year old Male BPH and Elevated PSA presenting with stable symptoms some urgency but not bothersome NTF 0 His PSA not done yet this year he takes Avodart daily He will have PSA results sent to us Other symptoms: ED - no LABS: Hematocrit (%) Date Value 01/17/2016 36.7 01/16/2016 36.3 01/15/2016 36.5 01/14/2016 39.2 2022 - Pending to be faxed by lab to us Jun 2022 - PSA - 2.22 2020 - 1.97 MEDICATIONS: Cholecalciferol, Vitamin D3, (VITAMIN D) 25 mcg (1,000 unit) cap Take 1,000 Units by mouth once daily. dutasteride (AVODART) 0.5 mg capsule Take 1 capsule by mouth once daily. potassium chloride 20 mEq TbER Take by mouth once daily. Coenzyme U45-Buzjhcd E 100-5 mg-unit cap Take by mouth once daily. TRIAMTERENE/HYDROCHLOROTHIAZID (MAXZIDE-25MG ORAL) Take by mouth once daily. 37.5-25 MG simvastatin (ZOCOR) 20 mg tablet Take 20 mg by mouth daily at bedtime. MEN'S MULTI-VITAMIN ORAL Take by mouth once daily. Vitamin D3-Menaquinone 7 1000-90 unit-mcg ODT Take by mouth once daily. (Patient not taking: Reported on 07/26/2023) PAST MEDICAL HISTORY: PAST MEDICAL HISTORY Diagnosis Date Benign insulinoma BPH (benign prostatic hypertrophy) with urinary retention Essential tremor Hyperlipemia Hypertension Obstructive sleep apnea Snoring REVIEW OF SYSTEMS: GENERAL: No fever, chills, weight loss, or fatigue. All other systems reviewed and are negative PHYSICAL EXAMINATION: Blood pressure 130/90, pulse 96, temperature 36.2 C (97.2 F), temperature source Temporal, height 175.9 cm (5' 9.25 ), weight 100.2 kg (221 lb), SpO2 97 %. GENERAL: WNL nutrition, no deformities, healthy appearing PROBLEM LIST REVIEW: Yes LABS: Results for orders placed or performed in visit on 07/26/23 UA DIP, URINE (POC) Result Value Ref Range GLUCOSE UA (POCT) Negative Negative mg/dL BILIRUBIN UA (POCT) Negative Negative KETONE UA (POCT) Negative Negative mg/dL SPECIFIC GRAVITY UA (POCT) 1.020 1.005 - 1.030 HEMOGLOBIN/BLOOD UA (POCT) Negative Negative PH UA (POCT) 7.5 4.5 - 8.0 PROTEIN UA (POCT) Negative Negative mg/dL UROBILINOGEN UA (POCT) 0.2 Normal E.U./dL NITRITE UA (POCT) Negative Negative LEUKOCYTES UA (POCT) Negative Negative COLOR UA (POCT) Yellow CLARITY UA (POCT) Clear PROCEDURES: PVR 88 ml IMAGING: IMPRESSION/PLAN: 72 year old male with BPH LUTS with mild elevated PVR 1. Benign prostatic hyperplasia without lower urinary tract symptoms - ICD9: 600.00, ICD10: N40.0 (primary diagnosis) 2. Screening for genitourinary condition - ICD9: V81.6, ICD10: Z13.89 > waiting on PSA for PCP > 1 year Appt w/ UDAY Sawant MT, PA-C with PSA prior UDAY Burgos MT, PA-C Verified name and date of . CC Post Void Residual HPI: Álvaro Echavarria is a 73 year old male. The patient is here now for an appointment with UDAY Burgos MT, PA-COV. Procedure: Explained procedure to patient and verbalizes understanding. Performed a PVR. Patient urinated and instructed to empty bladder as much as possible just prior to having PVR done using bladder ultrasound scanner. Results of scan: 88 mL The patient tolerated the procedure well. Plan: Appointment with Chava. documented in this encounter [facility] Note 10-08-2022 Telephone Encounter - Anjali Jo LPN - 10/08/2022 1:41 PM ESTTelephone Encounter - Anjali Jo LPN - 10/06/2022 8:18 AM EST Note Date & Type Note Facility 10-08-2022 Miscellaneous Notes Formattin g of this note might be different from the original. Called patient. Verified name and date of . on phone with patient as well. Reports they were able to get refill and does not need prescription renewed at this time. States their cat had knocked bottle off of table and they had been unable to locate it but it has been located since call. Will call and let us know when refills are needed. Anjali Jo LPN Patient phones requesting refills as follows: Requested Prescriptions Pending Prescriptions Disp Refills dutasteride (AVODART) 0.5 mg capsule 90 capsule 3 Sig: Take 1 capsule by mouth once daily. Verified pharmacy. Please review and advise. Anjali Jo LPN documented in this encounter [facility] Note 07-02-2022 Telephone Encounter - Anjali Jo LPN - 07/02/2022 8:43 AM EDT Note Date & Type Note Facility 07-02-2022 Miscellaneous Notes Formattin g of this note might be different from the original. Received fax from [facility] of recent PSA done there of 2.22. Results sent to operations to be scanned to [facility] records. Anjali Sandro REDDY documented in this encounter [facility] History of Present illness Narrative 03-30-2022 Viki Bryant MD - 03/30/2022 3:01 PM EDT Note Date & Type Note Facility 03-30-2022 History of Presen t illness Narrative [facility] - NEW PATIENT EVALUATION David Hurley [address] [place] [facility] [id number] Shanna Horne MD No address on file Dear Dr. Hurley: Thank you for referring Mr. Echavarria to our clinic today. As you know he is a 72 year old right-handed male who is seen in consultation for evaluation of tremor since all his life . He is seen with his . Subjective HISTORY OF PRESENT ILLNESS: Initial HPI Recalls having tremors his whole life. recalls him having tremors since she met him at age 24. brought up the tremor to PCP because she saw his hands shake early in the morning when he's sleeping. Hands on his chest when he does it. Tremor had also gotten worse over the past several months. Hands shake on the steering wheel. Some control over them. Tremor when he eats, not as much when he drinks. Writing is legible, sloppy, shaky. Can write a check if he has to. Has always written small and not any worse lately. No leg, voice, head tremors. No change in hand dexterity. Seen by [facility] in 2014 for [facility]. Full work-up including LP not consistent with AD. Progressive. Would not be able to live independently if something happened to . Lives with and son. Needs help with medications, supervision. Would be ok alone for a day or 2 with advanced planning. Can be left alone for several hours at a time. Short-term memory impairment and word-finding. Used to be in charge of directions on trips but now he asks his . In addition, the following areas that may be affected by abnormal involuntary movements were evaluated: Daily activities Difficulties with eating: Yes (slight) Difficulties in dressin (none) Difficulties with hygiene activities: 0 (none) Difficulties with handwriting: Yes (mild) Difficulties with doing hobbies and other activities: 0 (none) Difficulties turning in bed: 0 (none) Difficulties getting out of bed, car or chair: 0 (none) Tremors/Gait/Balance Shaking or tremors: Yes (moderate): Walking and balance problems: 0 (none) Number of falls in the Last Month: 0 Gait freezin (none) Autonomic/Pain Lightheadeness on standin (none) Urinary problems: Yes (mild) Constipation problems: 0 (none) Pain and other sensations: 0 (none) Speech/Swallowing Speech problems: Yes (mild)word-finding can be slow [place] (none) Chewing and swallowing problems: 0 (none) Sleep/Fatigue Sleep problems: Yes (slight) on CPAP for many years. Hard to fall asleep. Stays up late, sometimes to 2-3 AM. Sleeps 6 hours per night. Not new. Daytime sleepiness: Yes (mild) Fatigue: Yes (slight) REM sleep behavior disorder: no Restless Legs Syndrome: no Impaired sense of smell: No Mood/Behavior Depression: PQH-9 = 5 usually representing mild (5-9) depression. Anxiety: NAZ-7 = 0 usually representing no significant (0-4) anxiety. Finally, the following table shows the patient's overall global physical and mental health using the PROMIS scale: PROMIS-10 Office Visit from 03/30/2022 in Neurology Office Visit from 06/30/2021 in Urology Global Physical Health T Score 54.1 54.1 Global Mental Health T Score 53.3 43.5 0-10 Standard Pain Scale 4 5 *PROMIS-10 scoring scale: mean = 50, over 50 is above average, under 50 is below average Movement Disorders Medications Schedule - as of the start of the visit: Review of Systems Review of Systems Constitutional: Negative Eyes Negative for Change in vison not corrected by glasses and Vision loss or change Hent Negative for Hearing Loss, Difficulty Swallowing, Tinnitus and Recent change in speech or voice Cardiovascular: Negative Respiratory Positive for Snoring Negative for SOB at rest, SOB with exertion, Cough and Wheezing GI: Negative Positive for Urgency Negative for Impotence, Incontinence and Sexual Dysfunction Endocrine: Negative Musculoskeletal: Negative Integumentary: Negative Heme/Lymph: Negative Allergy/Immunologic: Negative Neurologic Positive for Memory Problems Negative for Headache, Numbness/Tingling, Weakness, Double Vision, Trouble Swallowing and Slurred Speech Psychiatric: Negative Patient's Review of Systems has been reviewed with the patient and updated as appropriate. ALLERGIES No Known Allergies Current Outpatient Medications Medication Sig Coenzyme D22-Zfqrfiv E 100-5 mg-unit cap Ubidecarenone/Vit E Acet Active 1 EA DAILY December 08, 2015 5:43pm Vitamin D3-Menaquinone 7 1000-90 unit-mcg ODT Take by mouth. dutasteride (AVODART) 0.5 mg capsule Take 1 capsule by mouth once daily. TRIAMTERENE/HYDROCHLOROTHIAZID (MAXZIDE-25MG ORAL) Take by mouth once daily. simvastatin (ZOCOR) 20 mg tablet Take 20 mg by mouth daily at bedtime. MEN'S MULTI-VITAMIN ORAL Take by mouth. No current facility-administered medications for this visit. Past Medical and Surgical History: has a past medical history of Benign insulinoma, BPH (benign prostatic hypertrophy) with urinary retention, Hyperlipemia, Hypertension, Obstructive sleep apnea, and Snoring. He has no past medical history of Arrhythmia, Asthma, Atrial fibrillation ([facility]), Blood dyscrasia, Cancer ([facility]), Chronic obstructive pulmonary disease (COPD) ([facility]), Chronic renal insufficiency, Complication of anesthesia, Congestive heart failure ([facility]), Coronary artery disease, Depression, Diabetes ([facility]), Epilepsy ([facility]), Glaucoma, Heart attack ([facility]), Hypothyroidism, Parkinson disease ([facility]), Seizures ([facility]), Steroid long-term use, Stroke ([facility]), Substance abuse ([facility]), or Syncope. has a past surgical history that includes colonoscopy flx dx w/collj spec when pfrmd (04/28/15) and picc line insert/consult (12/15/2015). Social History Tobacco Use Smoking status: Never Smoker Smokeless tobacco: Never Used Substance Use Topics Alcohol use: Not Currently Drug use: No Family History: family history includes Leukemia in his brother; Tremor in his paternal grandfather; neurological problem in his brother. Objective Vital Signs: BP 127/89 (BP Site: Left Arm, BP Position: Sitting, BP Cuff Size: Regular Adult) Pulse 77 Ht 177.2 cm (5' 9.75 ) Wt 97.5 kg (215 lb) SpO2 99% BMI 31.07 kg/m General Physical Examination: General: Awake, alert, interactive, no acute distress, good nutritional status, normal development, well-kept General Neurological Examination: Neurological Exam Mental Status Awake and alert. Speech is normal. Language is fluent with no aphasia. Fund of knowledge is abnormal. Knowledge: Majority of history from . Cranial Nerves CN III, IV, : Extraocular movements intact bilaterally. CN V: Facial sensation is normal. CN VII: Full and symmetric facial movement. CN VIII: Hearing is normal. CN XI: Shoulder shrug strength is normal. CN XII: Tongue midline without atrophy or fasciculations. Motor Strength is 5/5 throughout all four extremities. Reflexes Right Left Brachioradialis 1+ 1+ Biceps 1+ 1+ Patellar 0 0 Achilles 0 0 Coordination Right: Xezoxj-yo-gayh normal. Rapid alternating movement normal. Left: Hrswti-df-hveb normal. Rapid alternating movement normal. Movement Disorders Scales Performed: MDS-UPDRS Motor subscale condition of exam Medication Off/On/Naiive Time of UPDRS Time of Last Medication Last Medication Taken DBS Right DBS Left MDS-UPDRS Motor subscale scores Speech 1-Slight. Loss of modulation, diction or volume, but still all words easy to understand. Facial Expression 1-Slight. Minimal masked facies manifested only by decreased frequency of blinking. Rigidity Neck 1-Slight. Rigidity only detected with activation maneuver. Rigidity Right Upper Extremity 2-Mild. Rigidity detected without the activation maneuver, but full range of motion is easily achieved. Rigidity Left Upper Extremity 2-Mild. Rigidity detected without the activation maneuver, but full range of motion is easily achieved. Rigidity Right Lower Extremity 0-Normal. No rigidity. Rigidity Left Lower Extremity 0-Normal. No rigidity. Finger Taps Right 1-Slight. a) the regular rhythm is broken with one or two interruptions or hesitations of the tapping movement, b) slight slowing, c) the amplitude decrements near the end of the 10 taps. Finger Taps Left 2-Mild. a) 3 to 5 interruptions during tapping, b) mild slowing, c) the amplitude decrements midway in the 10-tap sequence. Hand Movements Right 1-Slight. a) the regular rhythm is broken with one or two interruptions or hesitations of the movement, b) slight slowing, c) the amplitude decrements near the end of the task. Hand Movements Left 1-Slight. a) the regular rhythm is broken with one or two interruptions or hesitations of the movement, b) slight slowing, c) the amplitude decrements near the end of the task. Arm Movements Right 1-Slight. a) the regular rhythm is broken with one or two interruptions or hesitations of the movement, b) slight slowing, c) the amplitude decrements near the end of the sequence. Arm Movements Left 1-Slight. a) the regular rhythm is broken with one or two interruptions or hesitations of the movement, b) slight slowing, c) the amplitude decrements near the end of the sequence. Toe Taps Right 2-Mild. a) 3 to 5 interruptions during the tapping movements, b) mild slowing, c) the amplitude decrements midway in the task. Toe Taps Left 2-Mild. a) 3 to 5 interruptions during the tapping movements, b) mild slowing, c) the amplitude decrements midway in the task. Leg Agility Right 1-Slight. a) the regular rhythm is broken with one or two interruptions or hesitations of the movement, b) slight slowing, c) the amplitude decrements near the end of the task. Leg Agility Left 1-Slight. a) the regular rhythm is broken with one or two interruptions or hesitations of the movement, b) slight slowing, c) the amplitude decrements near the end of the task. Arise From Chair 0-Normal. No problems. Able to arise quickly without hesitation. Gait 1-Slight. Independent walking with minor gait impairment. Gait Freezing 0-Normal. No freezing. Posture Stability 0-Normal. No problems: recovers with one or two steps. Posture 0-Normal. No problems. Body Bradykinesia 1-Slight. Slight global slowness and poverty of spontaneous movements. Postural Tremor Hand Right 1-Slight. Tremor is present but less than 1cm in amplitude. Postural Tremor Hand Left 1-Slight. Tremor is present but less than 1cm in amplitude. Kinetic Tremor Right 2-Mild. Tremor is at least 1 but less than 3 cm in amplitude. Kinetic Tremor Left 2-Mild. Tremor is at least 1 but less than 3 cm in amplitude. Rest Tremor Amplitude Right Upper Extremity 1-Slight. < 1 cm in maximal amplitude. Rest Tremor Amplitude Left Upper Extremity 1-Slight. < 1 cm in maximal amplitude. Rest Tremor Amplitude Right Lower Extremity 0-Normal. No tremor. Rest Tremor Amplitude Right Lower Extremity 0-Normal. No tremor. Rest Tremor Amplitude Lip/Jaw 0-Normal. No tremor. Rest Tremor Constancy 4-Severe. Tremor at rest is present > 75% of the entire examination period. MDS-UPDRS Motor subscale totals Left Total 13 Right Total 12 Midline Total 5 Tremor Total / 10 12 PIGD Total / 3 1 Overall Total 34 % Change Compared to Last Filed Total Pertinent Studies Brain MRI 03/10/2015 IMPRESSION: * NO EVIDENCE OF AN ACUTE INTRACRANIAL PROCESS OR INTRACRANIAL MASS. * MODERATE GENERALIZED VOLUME LOSS. * HIPPOCAMPAL VOLUMES AT THE less than 5th are PERCENTILE WHEN COMPARED TO AGE MATCHED NORMAL CONTROLS BY QUANTITATIVE ANALYSIS. * MILD WHITE MATTER DISEASE WHICH IS NONSPECIFIC BUT LIKELY REFLECTIVE OF CHRONIC MICROVASCULAR ISCHEMIA. Neuropsychological testing 03/10/5015 IMPRESSIONS: Neuropsychological evaluation revealed impairments in episodic memory, working memory, information processing speed, and aspects of executive functioning (i.e., response inhibition, set switching, phonemic and semantic verbal fluency). Performance on a measure of single word reading ability was also extremely low and well below his estimated intellectual baseline. Mr. Echavarria's memory performance was characterized by poor acquisition of new information (i.e., flat learning curve) and impaired recall following delay periods. He also did not show consistent benefit from cueing. In contrast, his performance on measures of confrontation naming and visuospatial skills was intact. On brief mood screening measures, he indicated minimal symptoms of mood disturbance (i.e., anxiety, depression). On informant measures, Mr. Echavarria's indicated that he has shown minimal impairment in carrying out daily activities, as well as symptoms of agitation. Taken together, results of this exam are suggestive of cognitive dysfunction affecting frontotemporal structures. Based on the report from the patient and his , Mr. Echavarria maintains fairly independent functioning. As such, his presentation is most compatible with a diagnosis of Mild Cognitive Impairment (amnestic type). Considered with his performance in this evaluation and notable atrophy on brain imaging, his 's report of 5-7 years of progressive decline is highly concerning for a neurodegenerative process, and he appears to have little to no insight into his cognitive changes. Assessment and Plan: Assessment Mr. Echavarria is a right-handed 72 year old male with ET and dementia. Noting action tremors all his life. Action tremor seen today is consistent with ET plus + family history and consistent time course. Also found to have rigidity vs paratonia on exam plus some impairment of upper and lower extremity agility concerning for parkinsonism. He is also several years into progressive cognitive impairment, meets criteria for dementia. Evaluated by [facility] in 2014 with diagnosis of MCI with no clear cut etiology found at the time. It is possible this parkinsonism is part of his dementia syndrome. At this point he and his are not interested in ET treatment or a trial of Sinemet since he is managing at home. Will monitor him every 6-12 months. The following are the current problems noted and addressed during this visit: Essential tremor (primary encounter diagnosis) Parkinsonism, unspecified parkinsonism type (hcc) Dementia without behavioral disturbance, unspecified dementia type (hcc) Plan 03/30/2022 Visit: No medications for now - Updated Movement Disorders Medication Schedule: Medical Decision Making: Problems: Moderate: New problem with uncertain prognosis Data: Unique test result(s) reviewed: 3+ Medical Decision Making Level: 4 - Moderate Thank you for allowing me to be part of the clinical care of this patient! I look forward to continued participation in the patient s care with you. Please do not hesitate to call with any questions. Sincerely, Viki Bryant MD documented in this encounter [facility] Evaluation note Note Date & Type Note Facility documented in this encounter [facility] Evaluation note Note Date & Type Note Facility documented in this encounter [facility] Evaluation note Note Date & Type Note Facility documented in this encounter [facility] Advance Directives No Advanced Directives Records FoundDocuments on File Type Date Recorded Patient Supervisor Grounds Expl anation Advance Directive(s) 01/12/2016 12:38 PM Advance Directive(s) 01/12/2016 10:00 PM Advance Directive(s) 01/01/2016 10:02 AM Advance Directive(s) 01/01/2016 6:13 PM Summary Purpose Family History No Family History Records Found Additional Source Comments Source Comments (unrecognize d section and content) In the event this informatio n is protected by the Federal Confidentiality of Alcohol and Drug Abuse Patient Records regulations: The Federal rules restrict any use of the information to criminally investigate or prosecute any alcohol or drug abuse patient.[facility] the event this information is protected by the Federal Confidentiality of Alcohol and Drug Abuse Patient Records regulations: The Federal rules restrict any use of the information to criminally investigate or prosecute any alcohol or drug abuse patient.[facility] the event this information is protected by the Federal Confidentiality of Alcohol and Drug Abuse Patient Records regulations: The Federal rules restrict any use of the information to criminally investigate or prosecute any alcohol or drug abuse patient.[facility] the event this information is protected by the Federal Confidentiality of Alcohol and Drug Abuse Patient Records regulations: The Federal rules restrict any use of the information to criminally investigate or prosecute any alcohol or drug abuse patient.[facility] Reason for Visit (unrecogniz ed section and content) Reason Comments Results Reason Onset Date Comments Refill Request 10/06/2022 Reason Comments Benign Prostatic Hypertrophy Follow Up Care Teams (unrecognized sec tion and content) Pharmacist Per Diem Relationship Specialty Start Date End Date Ozzie Shanna Marc PCP - General 02/04/04 Pharmacist Per Diem Relationship Specialty Start Date End Date Shanna Horne Marc PCP - General 02/04/04 Pharmacist Per Diem Relationship Specialty Start Date End Date Shanna Horne PCP - General 02/04/04 (unrecognized sect ion and content) No Status Records Found INFORMATION SOURCE (unrecogn ized section and content) FOR RECORDS PERTAINING TO PATIENTS WHO ARE OR HAVE BEEN ENROLLED IN A CHEMICAL DEPENDENCY/SUBSTANCEABUSE PROGRAM, SOME INFORMATION MAY BE OMITTED. This clinical summary was aggregated from multiple sources. Caution should be exercised in using it in the provision of clinical care. This summary normalizes information from multiple sources, and as a consequence, information in this document may materially change the coding, format and clinical context of patient data. In addition, data may be omitted in some cases. CLINICAL DECISIONS SHOULD BE BASED ON THE PRIMARY CLINICAL RECORDS. [facility] [employer] [facility]. provides no warranty or guarantee of the accuracy or completeness of information in this document.
[2024-01-19 13:04] LABS: Vitamin B12 620 pg/mL (211-911)
[2024-01-19 14:48] LABS: Hemoglobin A1c 5.4 % (3.8-5.6)
[2024-01-19 15:04] LABS: AST(SGOT) 47 U/L (15-37); Alanine Aminotransfer ALT/SGPT 84 U/L (16-61); Albumin, Serum 3.9 g/dL (3.2-5.0); Alkaline Phosphatase 64 U/L (45-117); Anion Gap 9 (5-15); BUN 24 mg/dL (7-18); BUN/Creat Ratio 17.3 RATIO (10-20); Calcium,Total 9.6 mg/dL (8.5-10.1); Chloride 108 mmol/L (98-107); Creatinine, Serum 1.39 mg/dL (0.70-1.30); EST Glomerular Filtration Rate 53 mL/min (>60); Est Glom Filt Rate - Afr Amer 64 mL/min (>60); Globulin 3.8 g/dL (2.2-4.2); Glucose 116 mg/dL (74-106); Potassium 3.4 mmol/L (3.5-5.1); Protein, Total 7.7 g/dL (6.4-8.2); Sodium Level 142 mmol/L (136-145); Thyroid Stim Hormone (TSH) 1.27 uIU/mL (0.358-3.74)
[2024-01-21 16:09] LABS: Vitamin D 1,25-Dihydroxy 41.4 pg/mL (24.8-81.5)
[2024-01-24 00:07] LABS: Free Kappa Light Chains 32.6 mg/L (3.3-19.4); Free Lambda Light Chains 23.4 mg/L (5.7-26.3); Vitamin B1, Thiamine 160.6 nmol/L (66.5-200.0)
== END | disposition home or self-care (01) ==
LOC: MTLAB 09:42
PROVIDERS: PCP Family Medicine; Referring Provider Psychiatry & Neurology Neurology; Visit Provider Psychiatry & Neurology Neurology
DX: F03.90 Unspecified dementia, unspecified severity, without behavioral disturbance, psychotic disturbance, mood disturbance, and anxiety (principal); G25.0 Essential tremor; R73.9 Hyperglycemia, unspecified
CPT/HCPCS: 36415; 80053; 82140; 82607; 82652; 82746; 83036; 83883; 84425; 84443; 85027

== ENCOUNTER → 2024-01-30 | Outpatient (CLI) | payer MEDICARE, SELFPAY ==
--- NOTE | 2024-01-30 14:00 | MRI_ITS ---
STUDY: MRI BRAIN WITHOUT CONTRAST REASON FOR EXAM: Male, 74 years old. dementia TECHNIQUE: Standardized multiplanar fat and water weighted pulse sequences were obtained. COMPARISON: No relevant prior comparison study available HEMISPHERES, CEREBELLUM AND BRAINSTEM: No areas of abnormally restricted diffusion within the brain parenchyma to suggest acute or subacute infarct. No areas of encephalomalacia. Scattered foci of subcortical and periventricular T2 prolongation statistically relate to chronic microangiopathic gliosis. Susceptibility weighted images show no evidence of intracranial hemorrhage. No extra-axial collections. No mass, mass effect or herniation pattern. PITUITARY: Infundibulum and pituitary have normal configuration. Midline structures appear normal. CSF SPACES: There is moderate generalized brain parenchymal volume loss, with commensurate prominence of the ventricular system and extra-axial CSF spaces. No hydrocephalus. Basal cisterns are patent. VESSELS: 1. There are normal flow voids noted in the great vessels at the skull base ORBITS AND PARANASAL SINUSES: 1. Both aphakic globes, extraocular muscles, optic nerves and retrobulbar fat appear unremarkable. 2. Small secretions in the frontal nasal drainage pathways bilaterally.. Right mastoid air cell partial effusion. Left mastoid air cells are pneumatized. BONY ELEMENTS: Bony elements of the cranial vault, facial skeleton and skull base have normal appearance. SCALP AND SOFT TISSUES: Normal appearance of the soft tissues of the scalp and the visualized face OTHER: None MRI/Brain without Contrast IMPRESSION: * No acute or subacute intracranial pathology. * Mild-moderate chronic white matter small vessel ischemic changes. * Moderate generalized brain parenchymal atrophy. No disproportionate areas of brain parenchymal atrophy to suggest a specific subtype of dementia. Electronically Signed: Washington Osorio MD at 4:51 EDT ,
== END | disposition home or self-care (01) ==
PROVIDERS: PCP Family Medicine; Referring Provider Psychiatry & Neurology Neurology; Visit Provider Psychiatry & Neurology Neurology
DX: F03.90 Unspecified dementia, unspecified severity, without behavioral disturbance, psychotic disturbance, mood disturbance, and anxiety (principal)
CPT/HCPCS: 70551

== ENCOUNTER 2024-03-12 16:20 | Emergency (ER) | payer MEDICARE, SELFPAY ==
[2024-03-12] VITALS (7 sets, daily range): BP systolic 119–187; BP diastolic 63–93; PULSE 64–84; RESP 16–19; TEMP 36.6–36.8; O2SAT 94–98; BMI 29.5
--- NOTE | 2024-03-12 17:09 | EDS_ITS ---
HPI History of Present Illness Chief Complaint: Flank Pain PFSH PFSH Home Medications multivitamin with folic acid 400 mcg tablet 1 tab PO DAILY 10/18/14 [History Last Taken 12/08/15] simvastatin 20 mg tablet 20 mg PO QHS 10/18/14 [History Last Taken 12/07/15] triamterene 37.5 mg-hydrochlorothiazide 25 mg tablet 1 tab PO DAILY 10/18/14 [History Last Taken 08/15/19] coenzyme [id number] E 100 mg-5 unit capsule 1 ea PO DAILY 12/08/15 [History Last Taken 12/08/15] glucosamine 750 [id number]-[id number]-qds no.1 625 mg-C 30 lu-kjca-hoqn tablet 1 ea PO DAILY 12/08/15 [History Last Taken 12/08/15] dutasteride 0.5 mg capsule 0.5 mg PO DAILY 05/31/17 [History Last Taken 06/26/19 05:00] donepezil 10 mg tablet 10 mg PO QHS #30 tabs 01/17/24 [Rx Last Taken Unknown] donepezil 5 mg tablet 5 mg PO QHS #30 tabs 01/17/24 [Rx Last Taken Unknown] ondansetron 4 mg disintegrating tablet 4 mg PO Q8H PRN PRN Nausea #10 tabs 03/12/24 [Rx Last Taken Unknown] oxycodone 5 mg tablet 5 mg PO Q6H PRN pain 3 days #12 tabs 03/12/24 [Rx Last Taken Unknown] Allergy/AdvReac Type Severity Reaction Status Date / Time ciprofloxacin Allergy Severe Vomiting Verified 03/12/24 16:25 Surgical History Status post total left knee replacement Social History (Updated 10/08/19 @ 15:[address] Micky Lomeli, DO) Smoking Status: Never smoker EXAM Physical Exam Const Vital Signs: 03/12/24 16:21 03/12/24 16:25 03/12/24 17:25 Temperature 98.1 F 98.1 F 98.0 F Temperature Source Temporal Temporal Temporal Pulse Rate 84 84 77 Respiratory Rate 16 16 16 Blood Pressure 187/93 H 187/93 H 145/85 H Blood Pressure Mean 124 124 105 Pulse Ox 97 97 94 Oxygen Delivery Method Room Air Room Air Room Air 03/12/24 18:00 03/12/24 19:00 03/12/24 20:00 Temperature 98.0 F 97.9 F Temperature Source Temporal Temporal Pulse Rate 74 64 82 Respiratory Rate 16 18 17 Blood Pressure 119/84 H 121/80 H 132/78 H Blood Pressure Mean 95 93 96 Pulse Ox 94 97 98 Oxygen Delivery Method Room Air Room Air Room Air 03/12/24 20:35 Temperature 98.2 F Temperature Source Pulse Rate 76 Respiratory Rate 19 H Blood Pressure 128/63 H Blood Pressure Mean 84 Pulse Ox 98 Oxygen Delivery Method [facility] MDM Narrative Medical decision making narrative: HISTORY OF PRESENT ILLNESS: 74-year-old male presents with left flank pain and difficulty with urination. He states he developed acute onset of left lower abdominal pain and flank pain. Reminiscent of prior kidney stone. Denies nausea vomiting or fever. Denies any urinary retention or dysuria. Also denies hematuria. Denies any falls or recent trauma. Denies any chest pain or shortness of breath. REVIEW OF SYSTEMS: Pertinent positives: Flank pain, lower abdominal pain Pertinent negatives: Fever, urinary retention PHYSICAL EXAM: Nursing triage notes reviewed, Vital signs reviewed Constitutional: please see mdm HENT: MMM Eyes: Pupils equal round and reactive to light, Extraocular muscles intact Neck: No stridor, no JVD, full neck ROM Lungs: Clear to auscultation, No wheezing or rales. No increased work of breathing, no conversational dyspnea, no accessory muscle use, no nasal flaring. No respiratory distress noted Heart: Regular rate and rhythm, No murmurs, No rubs and No gallops, 2+ distal pulses (radial, femoral, posterior tibial) in all extremities Abdomen: Soft, left lower quadrant TTP but no, rigidity, rebound or guarding, no obvious peritoneal signs, no palpable pulsatile abdominal masses, no auscultated abdominal bruit : No CVAT Extremities: No edema Neuro: No focal neurological deficits, cranial nerves II through XII intact, 5/5 strength in all extremities. Intact sensation to light touch in all extremities, 2+ reflexes bilateral patella tendons. Normal gait. No ataxia. Skin: No rash or lesions noted MEDICAL DECISION MAKING: Chief Complaint: Urinary tension, flank pain External records reviewed: No recent urologic evaluations. No recent advanced imaging of the abdomen pelvis. Reviewed image from 2013 showed kidney stone Factors affecting care: hypertension, BPH, hyperlipidemia Social determinants of health: History of dementia History obtained from others: Consults: none [facility] Narrative: Patient was initially hypertensive, otherwise afebrile and nontoxic-appearing. Exam with left lower quadrant TTP but no peritoneal signs I considered the following differential diagnosis: Nephrolithiasis, pyelonephritis, UTI, AAA I obtained a broad lab and imaging workup to further elucidate the etiology patient complaints. Give the pain symptomatic therapy in the form of Toradol, morphine IV fluids and Zofran ALL IMAGES (IF OBTAINED) HAVE BEEN PERSONALLY REVIEWED AND INTERPRETED BY MYSELF. CT scan abdomen pelvis shows 3 mm obstructive calculus Urinalysis shows no evidence of urinary inflammation suggestive of UTI BMP shows mild renal sufficiency, no evidence of electrolyte disturbances, CBC with leukocytosis suggestive of systemic inflammation, no anemia or thrombo cytopenia The synthesis of the patient's history, physical exam, labs images suggest nephrolithiasis as an etiology. That should pass without issue given its distal location and small size. Will give Zofran, oxycodone for nausea and pain control at home. Give strict return precautions and follow-up instructions with urology. The patient and/or family, caregivers express understanding. The patient and/or family, caregivers agrees with the plan. Shared decision making: I will have a discussion with the patient and or visitors regarding risk/benefits of further testing or admission. They will be made aware of of the risk/benefits inherent in this decision they will be given the opportunity to voice understanding. Total critical care time today provided was at least 0 minutes. This excludes separately billable procedures. Critical care time (if documented) is secondary to the patient having high probability of clinically significant/life threatening deterioration in the patient's condition which required my urgent intervention. Impression: 1. Nephrolithiasis 2. Renal insufficiency Dispo: Discharge home This note was generated with [employer] dictation software. It may contain incorrect words, spelling, and punctuation that were not noted in review of the chart prior to signing. Lab Data Labs: Laboratory Results - last 24 hr 03/12/24 03/12/24 17:25 18:04 WBC 13.0 H RBC 4.83 Hgb 15.2 Hct 43.5 MCV 90.1 MCH 31.5 MCHC 34.9 RDW Std Deviation 43.6 RDW Coeff of Yessica 13.3 Plt Count 242 MPV 9.7 Immature Gran % (Auto) 0.500 Neut % (Auto) 79.4 H Lymph % (Auto) 12.0 L Sublette % (Auto) 6.9 Eos % (Auto) 0.6 Baso % (Auto) 0.6 Absolute Neuts (auto) 10.3 H Absolute Lymphs (auto) 1.55 Nucleated RBC % 0 Sodium 137 Potassium 3.5 Chloride 105 Carbon Dioxide 27.0 Anion Gap 5 BUN 15 Creatinine 1.59 H Estim Creat Clear Calc 46.06 Est GFR (MDRD) Af Amer 55 L Est GFR (MDRD) Non-Af 46 L BUN/Creatinine Ratio 9.4 L Glucose 122 H Calcium 9.6 Urine Color Yellow Urine Clarity Clear Urine pH 7.0 Ur Specific Mchenry 1.005 Urine Protein Negative Urine Glucose (UA) Normal Urine Ketones Negative Urine Occult Blood 250 H Urine Nitrite Negative Urine Bilirubin Negative Urine Urobilinogen Normal Ur Leukocyte Esterase Negative Urine RBC 5-10 SEEN Urine WBC 0 SEEN Ur Squamous Epith Cells 0 SEEN Urine Bacteria 0 SEEN Urine Mucus 0 SEEN Radiography Diagnostic Testing: Clinical Impression(s) from Imaging Studies Abdomen/Pelvis CT 03/12/24 17:13 IMPRESSION: Obstruction of the left collecting system due to a 3 mm stone in the bladder at the level of the left ureteral orifice. There is mild left-sided hydronephrosis and hydroureter. Electronically Signed: New Almaraz MD at 18:34 EDT , Discharge Plan Triage Chief Complaint: Flank Pain ED Provider: Jos Monahan Dx/Rx/DC Orders Clinical Impression: Nephrolithiasis Instructions: Kidney Stones Expectant Tx Prescriptions: New oxycodone 5 mg tablet 5 mg PO Q6H PRN (Reason: pain) 3 Days Qty: 12 0RF ondansetron 4 mg tablet,disintegrating 4 mg PO Q8H PRN PRN (Reason: Nausea) Qty: 10 0RF No Action donepezil 5 mg tablet 5 mg PO QHS Qty: 30 0RF donepezil 10 mg tablet 10 mg PO QHS Qty: 30 5RF Rx Instructions: Begin after completing one month of treatment of donepezil 5mg nightly simvastatin 20 MG tablet 20 mg PO QHS Patient Comments: cholesterol lowering triamterene-hydrochlorothiazid 1 EACH tablet 1 tab PO DAILY Patient Comments: blood pressure multivitamin with folic acid 1 TABLET tablet 1 tab PO DAILY Patient Comments: suppliment [id number]-[id number]-guille-bosw 1 EACH tablet 1 ea PO DAILY Patient Comments: joint Xcovery coenzyme [id number] E 1 EACH capsule 1 ea PO DAILY Patient Comments: suppliment dutasteride 0.5 MG capsule 0.5 mg PO DAILY Primary Care Provider: David Hurley Referrals: Sudhakar Sanford MD [Med Staff - Active Staff] - David Hurley DO [Primary Care Provider] - Activity Restrictions/Additional Instructions: Thank you for trusting us with your care today! You may diagnosed with a kidney stone. Your kidney stone should pass on its own given its location and size Please take Tylenol (2 pills, 650 mg), ibuprofen (2 pills, 400 mg) every 6 hours as needed for pain and fever control. Please take oxycodone as needed for oxycodone Please take Zofran as needed for nausea and vomiting Please return to the emergency department if your symptoms change or worsen. Please follow with your primary care physician for further outpatient evaluation and management. Disposition Disposition: Home, Self Care Discharge Date/Time: 03/12/24 20:36
--- NOTE | 2024-03-12 17:13 | CT_ITS ---
EXAM: CT ABDOMEN AND PELVIS WITHOUT INTRAVENOUS CONTRAST CLINICAL INDICATION: Kidney Stone TECHNIQUE: Helically acquired images were obtained of the abdomen and pelvis without intravenous contrast. This CT exam was performed using one or more of the following dose reduction techniques: automated exposure control, adjustment of the mA and/or kV according to patient size, and/or use of iterative reconstruction technique. COMPARISON: 10/18/2014 FINDINGS: LOWER THORAX: Unremarkable. Lung bases are clear. No cardiomegaly. No significant pericardial effusion. ABDOMEN: LIVER: Unremarkable. Homogeneous. GALLBLADDER AND BILE DUCTS: Unremarkable. No calcified gallstones. No gallbladder distention or wall edema. No intra- or extrahepatic biliary ductal dilation. PANCREAS: Unremarkable. No focal cystic mass. SPLEEN: Unremarkable. Normal size without focal cystic or solid mass. ADRENALS: Unremarkable. No nodules. KIDNEYS AND URETERS: There is mild left-sided hydronephrosis. Normal renal size and position. STOMACH AND BOWEL: Unremarkable. No stomach or bowel distention. No focal inflammatory change. PELVIS: APPENDIX: No evidence of acute appendicitis. BLADDER: There is a 3 mm stone in the bladder at the level of the left ureteral orifice. REPRODUCTIVE: Unremarkable as visualized. No mass. ABDOMEN and PELVIS: INTRAPERITONEAL SPACE: Unremarkable. No ascites or other fluid collection. No free air. BONES/JOINTS: Unremarkable. No suspicious lytic or blastic abnormality. SOFT TISSUES: Unremarkable. No discrete abdominal or pelvic wall hernia. VASCULATURE: Unremarkable. Abdominal aorta is non-dilated. LYMPH NODES: Unremarkable. No enlarged lymph nodes. CT/Abdomen/Pelvis without Cont IMPRESSION: Obstruction of the left collecting system due to a 3 mm stone in the bladder at the level of the left ureteral orifice. There is mild left-sided hydronephrosis and hydroureter. Electronically Signed: New Almaraz MD at 18:34 EDT ,
[2024-03-12 17:38] LABS: Absolute Lymphocyte Count 1.55 X10^3/uL (0.83-4.51); Absolute Neutrophil Count 10.3 X10^3/uL (2.0-7.7); Basophil# 0.08 X10^3/uL; Basophil% 0.6 % (0-1); Eosinophil# 0.08 X10^3/uL; Eosinophils% 0.6 % (0-5); Hematocrit 43.5 % (40-54); Hemoglobin 15.2 g/dL (13.0-16.5); Lymphocyte # 1.55 X10^3/ul (0.83-4.51); Mean Corp Hgb Conc 34.9 g/dL (32-36); Mean Corpuscular Hgb 31.5 pg (27.0-32.0); Mean Corpuscular Volume 90.1 fL (80-94); Mean Platelet Vol. 9.7 fl (6.2-12.0); Monocyte% 6.9 % (0-10); NRBC Flagged by Analyzer 0 % (0-5); Neutrophil # 10.28 X10^3/uL (2.7-7.7); Neutrophil % 79.4 % (47-70); Platelet Count 242 K/mm3 (150-450); RBC Distribution Width CV 13.3 % (11.6-14.6); RBC Distribution Width SD 43.6 fl (35.1-43.9); Red Blood Count 4.83 M/mm3 (4.6-6.2)
[2024-03-12] MEDS: Morphine 2 MG/ML Syringe IV (17:44)
[2024-03-12] MEDS: Ondansetron 4 MG/2 ML Vial IV (17:44)
[2024-03-12] MEDS: Ketorolac 15 MG/ML Vial IV (17:44)
[2024-03-12] MEDS: 0.9% Normal Saline (500mL Bag) 500 ML 999 ML IV (17:45)
[2024-03-12 17:51] LABS: Anion Gap 5 (5-15); BUN 15 mg/dL (7-18); BUN/Creat Ratio 9.4 RATIO (10-20); Calcium,Total 9.6 mg/dL (8.5-10.1); Chloride 105 mmol/L (98-107); Creatinine, Serum 1.59 mg/dL (0.70-1.30); EST Glomerular Filtration Rate 46 mL/min (>60); Est Glom Filt Rate - Afr Amer 55 mL/min (>60); Estimated Creatinine Clearance 46.06 ml/min; Glucose 122 mg/dL (74-106); Potassium 3.5 mmol/L (3.5-5.1); Sodium Level 137 mmol/L (136-145)
[2024-03-12 18:19] LABS: Bacteria 0 SEEN /hpf (None Seen); Mucous, Urine 0 SEEN /hpf (<or=2+); Squamous Epithelial Cells - UA 0 SEEN /hpf (0-5); White Blood Cells 0 SEEN /hpf (0-5)
[2024-03-12 18:44] LABS: Color, Urine Yellow (Yellow); Glucose, Dipstick Normal (Normal); Ketone-Dipstick Negative (Negative); Leukocyte Esterase-Dipstick Negative /ul (Negative); Nitrite-Dipstick Negative (Negative); Occult Blood-Urine 250 /ul (Negative); Protein-Dipstick Negative (Negative); Specific Gravity, Urine 1.005 (1.002-1.030); Urine Bilirubin Dipstick Negative (Negative); Urine Clarity Clear (Clear); Urine Urobilinogen Normal (Normal)
[2024-03-12 18:51] LABS: Red Blood Cells-Urine 5-10 SEEN /hpf (0-5)
== END 2024-03-12 20:36 | disposition home or self-care (01) ==
PROVIDERS: Emergency Provider Emergency Medicine; PCP Family Medicine; Visit Provider Emergency Medicine
DX: N13.2 Hydronephrosis with renal and ureteral calculous obstruction (principal)
CPT/HCPCS: 74176; 80048; 81001; 85025; 96361; 96374; 96375; 99283; J7030; A4216; J2405

== ENCOUNTER → 2024-06-05 | Outpatient (CLI) | payer MEDICARE, SELFPAY ==
[2024-06-05 18:00] LABS: AST(SGOT) 89 U/L (15-37); Alanine Aminotransfer ALT/SGPT 136 U/L (16-61); Albumin, Serum 3.9 g/dL (3.2-5.0); Alkaline Phosphatase 76 U/L (45-117); Anion Gap 9 (5-15); BUN 13 mg/dL (7-18); BUN/Creat Ratio 10.4 RATIO (10-20); Calcium,Total 9.9 mg/dL (8.5-10.1); Chloride 104 mmol/L (98-107); Creatinine, Serum 1.25 mg/dL (0.70-1.30); EST Glomerular Filtration Rate 60 mL/min (>60); Est Glom Filt Rate - Afr Amer 73 mL/min (>60); Glucose 82 mg/dL (74-106); Potassium 3.3 mmol/L (3.5-5.1); Protein, Total 7.9 g/dL (6.4-8.2); Sodium Level 138 mmol/L (136-145)
[2024-06-08 11:09] LABS: Alpha-1-Globulins 0.2 g/dL (0.0-0.4); Alpha-2-Globulins 0.9 g/dL (0.4-1.0); Gamma Globulin 1.2 g/dL (0.4-1.8); Immunoglobulin A 472 mg/dL (61-437); Immunoglobulin G 1227 mg/dL (603-1613); Immunoglobulin M 44 mg/dL (15-143); PROEL- TOTAL PROTEIN 7.5 g/dL (6.0-8.5)
== END | disposition home or self-care (01) ==
LOC: MTLAB 14:32
PROVIDERS: PCP Family Medicine; Referring Provider Psychiatry & Neurology Neurology; Visit Provider Psychiatry & Neurology Neurology
DX: G62.9 Polyneuropathy, unspecified (principal)
CPT/HCPCS: 36415; 80053; 82784; 84165; 86334; 86335

== ENCOUNTER → 2024-08-07 | Outpatient (CLI) | payer MEDICARE, SELFPAY ==
[2024-08-07 15:59] LABS: AST(SGOT) 25 U/L (15-37); Alanine Aminotransfer ALT/SGPT 37 U/L (16-61); Albumin, Serum 3.9 g/dL (3.2-5.0); Alkaline Phosphatase 70 U/L (45-117); Bilirubin, Direct 0.17 mg/dL (0.00-0.30); Globulin 3.6 g/dL (2.2-4.2); Protein, Total 7.5 g/dL (6.4-8.2)
[2024-08-07 16:10] LABS: Hepatitis C Antibody Non-Reactive (Nonreactive)
== END | disposition home or self-care (01) ==
LOC: MTLAB 11:37
PROVIDERS: PCP Family Medicine; Referring Provider Family Medicine; Visit Provider Family Medicine
DX: R74.8 Abnormal levels of other serum enzymes (principal); Z12.5 Encounter for screening for malignant neoplasm of prostate
CPT/HCPCS: 36415; 80076; 84153; 86803; G0103

== ENCOUNTER → 2024-09-26 | Outpatient (CLI) | payer MEDICARE, SELFPAY ==
--- NOTE | 2024-09-26 06:52 | ECHOD_ITS ---
Reason For Study: CAD/ASHD, ABNORMAL EKG Procedure This was a 2D Doppler, Color Flow transthoracic echocardiogram. Exam performed in department. Left Ventricle Normal LV size. Left ventricular systolic function is lower limits of normal. The left ventricular ejection fraction is 55 %. No regional wall motion abnormalities noted. Right Ventricle Normal RV size. Normal systolic function. Atria Normal left atrium. Normal right atrium. Mitral Valve Normal mitral valve. Tricuspid Valve Normal tricuspid valve. Aortic Valve Trisinus/trileaflet aortic valve. Pulmonic Valve The pulmonic valve is not well visualized. Great Vessels Normal aortic root. The pulmonary artery is normal size. Normal inferior vena cava. Pericardium/Pleural No pericardial effusion. MMode/2D Measurements & Calculations LVIDd: 4.9 cm IVSd: 1.0 cm LVOT diam: 2.0 cm LVIDs: 3.4 cm LVPWd: 1.0 cm LVOT area: 3.1 cm2 RVDd: 3.8 cm FS: 30.6 % Ao root diam: 3.0 cm asc Aorta Diam: 3.9 cm LAV(MOD-bp): 40.0 ml LA dimension: 3.3 cm LAV(MOD-bp) Indexed: 19.1 ml/m2 LAV(MOD-sp2): 34.3 ml LAV(MOD-sp4): 34.9 ml SV(MOD-sp4): 50.6 ml LVAd ap4: 30.3 cm2 LVAd ap2: 23.5 cm2 LVLd ap4: 9.0 cm LVLd ap2: 8.5 cm SI(MOD-sp4): 24.2 ml/m2 EDV(MOD-sp4): 86.3 ml EDV(MOD-sp2): 54.3 ml EDV(sp4-el): 86.8 ml EDV(sp2-el): 55.4 ml LVAs ap4: 17.6 cm2 LVAs ap2: 12.7 cm2 LVLs ap4: 8.0 cm LVLs ap2: 7.2 cm ESV(MOD-sp4): 35.7 ml ESV(MOD-sp2): 18.8 ml ESV(sp4-el): 32.9 ml ESV(sp2-el): 19.0 ml EF(MOD-sp4): 58.7 % EF(MOD-sp2): 65.5 % EF(sp4-el): 62.1 % SV(MOD-sp2): 35.6 ml SV(sp4-el): 53.9 ml LA A4 area: 12.7 cm2 SI(MOD-sp2): 17.0 ml/m2 TAPSE: 2.0 cm Time Measurements MV dec time: 0.29 sec Doppler Measurements & Calculations MV E max rivas: 50.7 cm/sec Lat Peak E' Rivas: 7.1 cm/sec Med Peak E' Rivas: 7.6 cm/sec MV A max rivas: 72.6 cm/sec E/E' lat: 7.1 E/E' med: 6.6 MV E/A: 0.70 MV V2 max: 71.7 cm/sec MV P1/2t max rivas: 52.0 cm/sec Ao V2 max: 102.4 cm/sec MV max P.1 mmHg MV P1/2t: 66.0 msec Ao max P.2 mmHg MV V2 mean: 37.1 cm/sec Ao V2 mean: 71.4 cm/sec MV mean P.65 mmHg MV dec slope: 230.7 cm/sec2 Ao mean P.3 mmHg MV V2 VTI: 21.6 cm MVA(P1/2t): 3.3 cm2 Ao V2 VTI: 20.8 cm AV (velocity ratio): 0.79 MVA(VTI): 2.4 cm2 DALTON(I,D): 2.5 cm2 DALTON(V,D): 2.4 cm2 LV V1 max: 79.2 cm/sec SV(LVOT): 51.3 ml PA V2 max: 93.1 cm/sec LV V1 max P.5 mmHg LV V1 mean P.3 mmHg LV V1 mean: 53.0 cm/sec LV V1 VTI: 16.5 cm PI end-d rivas: 90.0 cm/sec ECHO/Echo Complete Interpretation Summary Normal LV size. Left ventricular systolic function is lower limits of normal. The left ventricular ejection fraction is 55 %. Structurally normal valves. Ordering Physician: Bar Medina Referring Physician: David Hurley Performed By: Spring Felipe RVT, RDCS and Student
--- NOTE | 2024-09-26 18:29 | STRESSREP ---
Stress Test Report Pharmacologic myocardial perfusion stress test. 74-year-old man with history of chest pain Resting EKG demonstrates sinus rhythm with a rate of 65 bpm. Resting blood pressure is 142/80 mmHg. 0.4 mg of regadenoson was infused per usual protocol followed by rapid intravenous saline flush injection. Continuous EKG monitoring was performed. The maximum heart rate was 91 bpm which was 61% of max impacted heart rate the maximum workload was 1 metabolic equivalent. At rest there were no ST or T wave changes noted to suggest ischemia and at peak infusion nonspecific ST changes were noted which did not meet the criteria for ischemia. No clinical angina is noted. The final blood pressure was 128/84 mmHg. Myocardial perfusion protocol. 14.3 mCi of technetium 99m sestamibi was injected at rest. 0.4 mg of regadenoson was infused per usual protocol. At peak infusion 45 mCi of technetium 99m sestamibi was injected stress images were obtained stress and rest images were reconstructed and compared in the short axis vertical long and horizontal long axis. Gated images were also obtained. Perfusion SPECT analysis: Review of the stress images demonstrate normal uptake of tracer noted in all areas of the myocardium. The resting images similar demonstrated normal uptake of tracer noted in all areas of the myocardium. No areas of reversibility are noted to suggest ischemia and no previous infarct is noted. Gated SPECT analysis: The gated ejection fraction is 69%. Conclusion: Normal pharmacologic myocardial perfusion stress test. Preserved ejection fraction.
== END | disposition home or self-care (01) ==
LOC: CVS 06:52
PROVIDERS: PCP Family Medicine; Referring Provider Internal Medicine Cardiovascular Disease; Visit Provider Internal Medicine Cardiovascular Disease
DX: R94.31 Abnormal electrocardiogram [ECG] [EKG] (principal)
CPT/HCPCS: 78452; 93017; 93306; A9500; A4216; J2785

== ENCOUNTER → 2025-03-21 | Outpatient (CLI) | payer MEDICARE, SELFPAY ==
[2025-03-21 13:05] LABS: AST(SGOT) 22 U/L (<=37); Alanine Aminotransfer ALT/SGPT 14 U/L (<=46); Albumin, Serum 4.4 g/dL (3.4-4.8); Alkaline Phosphatase 74 U/L (40-129); Bilirubin, Direct 0.31 mg/dL (0.00-0.30); Globulin 3.1 g/dL (2.2-4.2); Protein, Total 7.5 g/dL (5.9-8.4); Total Bilirubin 0.81 mg/dL (0.00-1.30)
[2025-03-21 13:36] LABS: Cholesterol 148 mg/dL (<=200); High Density Lipoprotein 37 mg/dL; Low Density Lipoprotein Calc. 79 mg/dL; Triglycerides 159 mg/dL; Very Low Density Lipoprotein 32 mg/dL (5-40)
== END | disposition home or self-care (01) ==
LOC: MTLAB 10:19
PROVIDERS: PCP Family Medicine; Referring Provider Student in an Organized Health Care Education/Training Program; Visit Provider Student in an Organized Health Care Education/Training Program
DX: E78.5 Hyperlipidemia, unspecified (principal)
CPT/HCPCS: 36415; 80061; 80076

== ENCOUNTER → 2025-08-05 | Outpatient (CLI) | payer MEDICARE, SELFPAY ==
[2025-08-05 17:50] LABS: Hematocrit 44.0 % (40-54); Hemoglobin 15.0 g/dL (13.0-16.5); Immature Granulocytes Count 0.020 X10^3/uL (0.0-0.0); Mean Corp Hgb Conc 34.1 g/dL (32-36); Mean Corpuscular Volume 91.1 fL (80-94); Mean Platelet Vol. 10.0 fl (6.2-12.0); NRBC Flagged by Analyzer 0 % (0-5); Platelet Count 252 K/mm3 (150-450); RBC Distribution Width CV 13.2 % (11.6-14.6); RBC Distribution Width SD 44.2 fl (35.1-43.9); Red Blood Count 4.83 M/mm3 (4.6-6.2); White Blood Count 6.9 K/mm3 (4.4-11.0)
[2025-08-05 18:34] LABS: Anion Gap 14 (5-15); BUN 18 mg/dL (4-19); BUN/Creat Ratio 15.7 RATIO (10-20); Calcium,Total 10.1 mg/dL (7.6-11.0); Carbon Dioxide 22.7 mmol/L (21.0-32.0); Chloride 103 mmol/L (98-108); Glucose 99 mg/dL (70-99); PSA,Total - Annual Screen 1.98 ng/mL (0.02-4.00); Potassium 3.8 mmol/L (3.3-5.1)
== END | disposition home or self-care (01) ==
LOC: MTLAB 14:09
PROVIDERS: PCP Family Medicine; Referring Provider Family Medicine; Visit Provider Family Medicine
DX: I10 Essential (primary) hypertension (principal); Z12.5 Encounter for screening for malignant neoplasm of prostate
CPT/HCPCS: 36415; 80048; 84153; 85025; G0103